=== PATIENT | female | born 1955 | race African-American/Black ===

== ENCOUNTER 2020-07-02 10:33 | Emergency (ER) | payer MEDICARE, MEDICAID, SELFPAY ==
[2020-07-02] VITALS (12 sets, daily range): BP systolic 121–162; BP diastolic 68–90; PULSE 54–81; RESP 18–35; TEMP 37.1; O2SAT 100
--- NOTE | 2020-07-02 10:35 | ECG_ITS ---
Measurements Intervals [place] Rate: 73 P: 51 MO: 143 QRS: -46 QRSD: 154 T: 69 QT: 424 QTc: 469 Interpretive Statements SINUS RHYTHM LEFT BUNDLE BRANCH BLOCK BASELINE ARTIFACT- I, II, III, AVR, AVL, AVF ABNORMAL ECG Electronically Signed On 07-04-2020 7:43:29 CDT by Anibal Parra D.O.
--- NOTE | 2020-07-02 11:15 | PC.NURSE ---
Pt states she took her vital signs this morning and her HR was 100. Pt states the HR worried her with hx of AFIB. Pt states she takes her meds as prescribed. Pt states she had no symptoms or pain. Pt states she currently feels at her baseline. Pt EKG done and HR WNL. Pt on monitor. Pt has call light in reach. Pt appears in NAD. Pt aware of POC.
--- NOTE | 2020-07-02 11:36 | ED.ARRPALP ---
HPI - Arrhythmia/Palpitations General Chief Complaint: Arrhythmia/Palpitations Stated Complaint: HEART RATE 100 Time Seen by Provider: 07/02/20 11:05 History of Present Illness HPI narrative: Patient is a 64-year-old female with history of atrial fibrillation who presents the ER with concerns for an elevated heart rate. Patient reports that she took her vital signs this morning and her heart rate was 100 bpm. This is atypical for her and it scared her and she thought she come in to be evaluated. She had no chest pain or shortness of breath. She has had no exertional dyspnea or chest pain. She had no dizziness or loss of consciousness. She reports she was totally asymptomatic. Related Data Allergies Allergy/AdvReac Type Severity Reaction Status Date / Time apixaban AdvReac Severe Palpitation Verified 07/02/20 10:38 s Review of Systems Review of Systems: All systems reviewed & are unremarkable except as noted in HPI and below Constitutional: Constitutional: Denies fatigue and Denies weakness Cardiovascular: Cardiovascular: Denies chest pain, Reports rapid heart rate and Denies radiating jaw, neck or arm pain Respiratory: Respiratory: Denies cough, Denies dyspnea and Denies wheezing Gastrointestinal: Gastrointestinal: Denies abdominal pain, Denies nausea and Denies vomiting PMFSH Past Medical History Medical History (Updated 07/02/20 @ 11:49 by Drake Segura MD) Atrial fibrillation Hypertension Surgical History Surgical History (Updated 07/02/20 @ 11:47 by Drake Segura MD) History of total right knee replacement Social History Social History (Updated 07/02/20 @ 11:47 by Drake Segura MD) Smoking status: Never smoker Exam Narrative: Exam Narrative: GENERAL: Well-appearing, well-nourished, and in no acute distress. HEAD: Normocephalic, atraumatic. ENT: Mucous membranes moist. CHEST: Clear to auscultation. No respiratory distress. HEART: Regular rate and rhythm. Normal peripheral pulses. ABDOMEN: Soft, nontender, nondistended. EXTREMITIES: Normal range of motion. No edema. NEURO: Alert and oriented x3. PSYCH: Normal mood and affect. Course Course Emergency Course: Patient resting comfortably. In sinus rhythm. Patient declines additional blood work. Patient could have potentially been in A. fib but is certainly rate controlled with her home medications. She has no chest pain will be discharged. Vital Signs Vital signs: Vital Signs Temperature 98.7 F 07/02/20 10:35 Pulse Rate 81 07/02/20 10:35 Respiratory Rate 18 07/02/20 10:35 Blood Pressure 162/86 H 07/02/20 10:35 Pulse Oximetry 100 07/02/20 10:35 Temperature 98.7 F 07/02/20 10:35 Pulse Rate 57 L 07/02/20 11:32 Respiratory Rate 22 H 07/02/20 11:32 Blood Pressure 149/82 H 07/02/20 11:32 Pulse Oximetry 100 07/02/20 10:35 MDM - Arrhythmia/Palpitations ECG Data EKG #1: ECG completion date: 07/02/20 ECG completion time: 10:42 EKG Interpretation: normal rate (73), sinus rhythm, no ectopy, non-specific ST changes, widened QRS and other (Intraventricular conduction delay.) Discharge Plan Discharge Clinical Impression: Palpitations Patient Disposition: Home, Self-Care Condition: Stable Instructions: A-fib (Atrial Fibrillation) (ED), Heart Palpitations (ED) Additional Instructions: Return the ER if you have chest pain or shortness of breath, you cannot keep down food or water, you have fever over 100.4 ?F, you have additional concerns. Follow-up/Referrals: Mckay,SHARON Falcon [Primary Care Provider] - 1 Week
== END 2020-07-02 12:10 | disposition home or self-care (01) ==
PROVIDERS: Emergency Provider Emergency Medicine; PCP Physician Assistant
DX: R00.2 Palpitations (principal); I48.91 Unspecified atrial fibrillation; I10 Essential (primary) hypertension
CPT/HCPCS: 93005; 99283

== ENCOUNTER 2020-08-19 18:11 | Emergency (ER) | payer MEDICARE, SELFPAY ==
[2020-08-19 18:40] VITALS: BP 152/102; PULSE 82; RESP 18; TEMP 36.7; O2SAT 100
--- NOTE | 2020-08-19 18:43 | ECG_ITS ---
Measurements Intervals [place] Rate: 78 P: 42 PA: 139 QRS: -45 QRSD: 149 T: 99 QT: 386 QTc: 442 Interpretive Statements SINUS RHYTHM LEFT AXIS DEVIATION LEFT BUNDLE BRANCH BLOCK ABNORMAL ECG Electronically Signed On 08-19-2020 20:08:51 PHOTONIC LABORATORY TECHNICIAN by Anibal Parra D.O.
[2020-08-19 19:30] VITALS: BP 143/100; PULSE 77; RESP 18; O2SAT 98
--- NOTE | 2020-08-19 19:49 | ED.GENADULT ---
HPI - General Adult General Chief complaint: Recheck/Abnormal Lab/Rx Stated complaint: High Blood Pressure Time Seen by Provider: 08/19/20 19:23 Source: patient Mode of arrival: ambulatory Limitations: no limitations History of Present Illness HPI narrative: Patient is a 64-year-old female who presents for recheck of her blood pressure was at home doing some light activities and felt slightly nauseous checked her blood pressure with a systolic of 200 patient presented for concern on arrival patient notes she is feeling better has no complaints or symptoms has not had any recent illness and is otherwise resting comfortably in the room in no distress history of hypertension is and is been compliant with her medications Related Data Allergies Allergy/AdvReac Type Severity Reaction Status Date / Time apixaban AdvReac Severe Palpitation Verified 07/02/20 10:38 s Review of Systems Review of Systems: All systems reviewed & are unremarkable except as noted in HPI and below PMFSH Past Medical History Medical History Atrial fibrillation Hypertension Surgical History Surgical History History of total right knee replacement Social History Social History Smoking status: Never smoker Exam Narrative: Exam Narrative: GENERAL: Well-appearing, well-nourished, and in no acute distress. HEAD: Normocephalic, atraumatic. EYES: PERRLA and EOMI. ENT: Nares clear, no rhinorrhea or epistaxis. Mucous membranes moist. CHEST: Clear to auscultation. No respiratory distress. No wheezes rales or rhonchi HEART: Regular rate and rhythm. No murmur heard. Normal peripheral pulses. ABDOMEN: Soft, nontender, nondistended EXTREMITIES: Normal range of motion. No edema. SKIN: Warm, dry, no rash. NEURO: No focal deficits. Alert and oriented x3. PSYCH: Normal mood and affect. Course Course Emergency Course: Patient in the room in no distress aware of case findings treatment plan diagnosis blood pressure is felt to be in a safe range for discharge home for further evaluation on outpatient basis by primary care patient is asymptomatic with no complaints Vital Signs Vital signs: Vital Signs Temperature 98.1 F 08/19/20 18:40 Pulse Rate 82 08/19/20 18:40 Respiratory Rate 18 08/19/20 18:40 Blood Pressure 152/102 H 08/19/20 18:40 Pulse Oximetry 100 08/19/20 18:40 Temperature 98.1 F 08/19/20 18:40 Pulse Rate 77 08/19/20 19:30 Respiratory Rate 18 08/19/20 19:30 Blood Pressure 143/100 H 08/19/20 19:30 Pulse Oximetry 98 08/19/20 19:30 Medical Decision Making MDM Narrative Medical decision making narrative: Patient in the room in no distress aware of case findings treatment plan diagnosis. [place] appropriate for outpatient reevaluation by primary care Vital Signs Vital Signs: Vital Signs Temperature 98.1 F 08/19/20 18:40 Pulse Rate 82 08/19/20 18:40 Respiratory Rate 18 08/19/20 18:40 Blood Pressure 152/102 H 08/19/20 18:40 Pulse Oximetry 100 08/19/20 18:40 Temperature 98.1 F 08/19/20 18:40 Pulse Rate 77 08/19/20 19:30 Respiratory Rate 18 08/19/20 19:30 Blood Pressure 143/100 H 08/19/20 19:30 Pulse Oximetry 98 08/19/20 19:30 ECG Data EKG #1: ECG completion date: 08/19/20 ECG completion time: 18:50 EKG Interpretation: normal rate, non-specific ST changes, LBBB, left axis and no acute changes Discharge Plan Discharge Clinical Impression: Elevated blood pressure reading Patient Disposition: Home, Self-Care Condition: Stable Instructions: Antibiotic Form, Hypertension (ED) Additional Instructions: Follow up with your primary care doctor in 5-7 days for re-evaluation. Go to ER for worsening pain, vision changes, nausea/vomiting, fever/chills, weakness, chest pain, shortness of
[2020-08-19 20:47] VITALS: BP 150/84; PULSE 78; RESP 17; O2SAT 98
== END 2020-08-19 20:47 | disposition home or self-care (01) ==
LOC: ANHED 20:08
PROVIDERS: Emergency Provider Emergency Medicine; PCP Physician Assistant
DX: I10 Essential (primary) hypertension (principal); I48.91 Unspecified atrial fibrillation; Z96.651 Presence of right artificial knee joint; I44.7 Left bundle-branch block, unspecified
CPT/HCPCS: 93005; 99283

== ENCOUNTER 2020-09-03 10:38 | Emergency (ER) | payer MEDICARE, SELFPAY ==
--- NOTE | ~2020-09-03 | XR_ITS ---
EXAMINATION: XR chest 2V EXAM DATE: 09/03/2020 11:35 INDICATION: Tightness in Chest X 1 day. TECHNIQUE: Frontal and lateral projections of the chest obtained and reviewed. Comparison is made to prior examination from 06/01/2019. FINDINGS: The lungs are clear. There are no pleural effusions. The cardiomediastinal silhouette is within normal limits. There is no pneumothorax suspected. The bones and soft tissues are unremarkab le. There is aortic arteriosclerosis. IMPRESSION: No acute cardiopulmonary findings. Reviewed, dictated and finalized at location B. [facility]
[2020-09-03 10:45] VITALS: BP 183/88; PULSE 71; RESP 19; TEMP 36.8; O2SAT 100
--- NOTE | 2020-09-03 10:49 | ECG_ITS ---
Measurements Intervals [place] Rate: 68 P: 46 TN: 136 QRS: -40 QRSD: 146 T: 75 QT: 438 QTc: 466 Interpretive Statements SINUS RHYTHM LEFT AXIS DEVIATION LEFT BUNDLE BRANCH BLOCK BASELINE ARTIFACT- I, II, III, AVR, AL, AVF, V1, V3-V6 ABNORMAL ECG Electronically Signed On 09-07-2020 16:14:42 SOFTWARE QUALITY TEST ENGINEER by Anibal Parra D.O.
[2020-09-03 11:16] LABS: Basophils Absolute Auto 0.1 K/mm3 (0.0-0.1); Basophils Percent Auto 0.9 % (0.2-1.2); Eosinophils Absolute Auto 0.2 K/mm3 (0-0.3); Eosinophils Percent Auto 2.8 % (0-4.4); Hematocrit 44.4 % (37.0-47.0); Hemoglobin 14.8 g/dL (12.0-15.0); Immature Granulocyte Absolute 0.02 K/mm3 (0.00-0.031); Immature Granulocyte Percent A 0.3 % (0-0.5); Lymphocytes Absolute Auto 1.81 K/mm3 (0.9-3.2); Lymphocytes Percent Auto 23.4 % (18.3-44.2); Mean Corpuscular HGB Conc 33.3 g/dl (32-36); Mean Corpuscular Hemoglobin 29.2 pg (26-34); Mean Corpuscular Volume 87.7 fl (80-100); Mean Platelet Volume 10.7 fl (7.4-10.4); Monocytes Absolute Auto 0.6 K/mm3 (0.1-0.6); Monocytes Percent Auto 7.6 % (2.6-8.5); Nucleated Red Blood Cells Perc 0.3 % (0.0-0.2); Platelet Count Result 343 k/mm3 (150-375); Red Blood Count 5.06 M/mm3 (4.2-5.4); Red Cell Distribution Width 15.6 % (11.5-14.5); White Blood Count 7.7 K/mm3 (4.5-10.0)
[2020-09-03 11:26] LABS: INR 2.1; Prothrombin Time 23.7 Seconds (11.1-14.7)
[2020-09-03 11:27] LABS: Partial Thromboplastin Time 32.8 SECONDS (22.3-36.8)
[2020-09-03] MEDS: ASPIRIN 81 MG CHEWABLE TABLET 324 MG PO (11:43)
[2020-09-03 11:53] LABS: Anion Gap 10 mmol/L (8-16); Blood Urea Nitrogen 12 mg/dL (7-17); Carbon Dioxide 19 mmol/L (22-30); Chloride 112 mmol/L (98-107); Estimated CRCL calculation 86 ml/min; Estimated Glomerular Filt Rate > 60; Glucose 107 mg/dL (65-105); Potassium 4.8 mmol/L (3.4-5.0); Sodium 141 mmol/L (137-145)
[2020-09-03 11:57] LABS: Troponin I 0.035 ng/mL (0.000-0.034)
[2020-09-03 13:40] VITALS: BP 133/77; PULSE 51; RESP 24; O2SAT 100
[2020-09-03 13:41] LABS: Troponin I < 0.012 ng/mL (0.000-0.034)
--- NOTE | 2020-09-03 13:47 | ED.ARRPALP ---
HPI - Arrhythmia/Palpitations General Chief Complaint: Arrhythmia/Palpitations Stated Complaint: afib, chest congestion Time Seen by Provider: 09/03/20 11:10 Source: patient Mode of arrival: ambulatory Limitations: no limitations History of Present Illness HPI narrative: 65-year-old with a history of atrial fibrillation on warfarin here with complaints of midsternal chest discomfort since early this morning. Patient states that she woke up with the discomfort. She denies any shortness of breath. No history of fever or chills MD complaint: palpitations Duration: intermittent Arrhythmia history: atrial fibrillation Associated symptoms: denies other symptoms Related Data Home Medications Medication Instructions Recorded Confirmed amlodipine 09/03/20 atorvastatin 09/03/20 ergocalciferol (vitamin D2) 09/03/20 [Vitamin D2] ezetimibe mg 09/03/20 ferrous sulfate mg PO 09/03/20 hydralazine 09/03/20 potassium chloride meq PO 09/03/20 sotalol 09/03/20 topiramate 09/03/20 tramadol mg 09/03/20 warfarin 09/03/20 Allergies Allergy/AdvReac Type Severity Reaction Status Date / Time apixaban AdvReac Severe Palpitation Verified 09/03/20 10:50 s Review of Systems Review of Systems: All systems reviewed & are unremarkable except as noted in HPI and below Constitutional: Constitutional: Reports no additional constitutional complaints Eyes: Eyes: Reports no additional eye complaints ENT: Reports system reviewed and no additional complaints, except as documented Cardiovascular: Cardiovascular: Reports as per HPI Respiratory: Respiratory: Reports no additional respiratory complaints Gastrointestinal: Gastrointestinal: Reports no additional gastrointestinal complaints Musculoskeletal: Musculoskeletal: Reports no additional musculoskeletal complaints [facility] Past Medical History Medical History Atrial fibrillation Hypertension Surgical History Surgical History History of total right knee replacement Social History Social History Smoking status: Never smoker Exam Narrative: Exam Narrative: GENERAL: Well-appearing, well-nourished, and in no acute distress. HEAD: Normocephalic, atraumatic. EYES: PERRLA and EOMI.. NECK: Supple. CHEST: Clear to auscultation. No respiratory distress. HEART: . No murmur heard. Normal peripheral pulses. ABDOMEN: Soft, nontender, nondistended, normal active bowel sounds. EXTREMITIES: Normal range of motion. No edema. SKIN: Warm, dry, no rash. NEURO: No focal deficits. Alert and oriented x3. PSYCH: Normal mood and affect. Course Course Emergency Course: Inform patient patient about her lab work, EKG findings. I did discused with Dr. Armstrong, patient can be discharged home and he will follow-up in the office in the next few days. Patient does feel comfortable going home. Vital Signs Vital signs: Vital Signs Temperature 36.8 C 09/03/20 10:45 Pulse Rate 71 09/03/20 10:45 Respiratory Rate 19 09/03/20 10:45 Blood Pressure 183/88 H 09/03/20 10:45 Pulse Oximetry 100 09/03/20 10:45 Temperature 36.8 C 09/03/20 10:45 Pulse Rate 51 L 09/03/20 13:40 Respiratory Rate 24 H 09/03/20 13:40 Blood Pressure 133/77 09/03/20 13:40 Pulse Oximetry 100 09/03/20 13:40 MDM - Arrhythmia/Palpitations Differential Diagnosis Differential diagnosis: Likely palpitations, anxiety and artial fibrillation Lab Data Result diagrams: 09/03/20 11:07 09/03/20 11:07 Labs: Lab Results 09/03/20 09/03/20 09/03/20 Range/Units 11:07 11:07 11:07 WBC 7.7 (4.5-10.0) K/mm3 RBC 5.06 (4.2-5.4) M/mm3 Hgb 14.8 (12.0-15.0) g/dL Hct 44.4 (37.0-47.0) % MCV 87.7 (80-100) fl MCH 29.2 (26-34) pg MCHC 33.3 (32-36) g/dl RDW 15.6 H (11.5-14
== END 2020-09-03 14:19 | disposition home or self-care (01) ==
PROVIDERS: Emergency Provider Family Medicine; PCP Physician Assistant
DX: I48.91 Unspecified atrial fibrillation (principal); I10 Essential (primary) hypertension
CPT/HCPCS: 36415; 71046; 80048; 84484; 85025; 85610; 85730; 93005; 99284; A9270

== ENCOUNTER 2021-03-22 14:15 | Observation (INO) | payer MEDICARE, SELFPAY ==
[2021-03-22] VITALS (22 sets, daily range): BP systolic 142–179; BP diastolic 64–91; PULSE 49–99; RESP 13–27; TEMP 36.1–36.9; O2SAT 78–100; BMI 38.4; BMI 37.9
--- NOTE | ~2021-03-22 | XR_ITS ---
EXAMINATION: XR chest 2V DATE: 03/22/2021 15:46 INDICATION: Congestion and chest pressure. TECHNIQUE: PA and lateral views of the chest were obtained. COMPARISON: Chest radiograph dated 09/03/2020 FINDINGS: . Retrocardiac opacity at the medial left lung base corresponding to a moderate-sized hiatal hernia i s appreciated on CT dated 06/23/2016. The lungs remain clear with no focal airspace opacities, pulmona ry edema, pleural effusion or pneumothorax. Cardiomegaly. Visualized bones and soft tissues are unrem arkable. IMPRESSION: 1. Cardiomegaly. 2. Moderate-sized hiatal hernia. Reviewed, dictated and finalized at location A.
--- NOTE | 2021-03-22 15:30 | ED.URI ---
HPI - URI/Sore Throat General Chief Complaint: Upper Respiratory Infection Stated Complaint: congestion Time Seen by Provider: 03/22/21 15:28 History of Present Illness HPI Narrative: 65 yo female w/ h/h/o htn, a-fib presents form home for chest pressure/congestion since this morning. She reports that this is mild. No SOB. does not change with exertion. Associated with just not feeling like herself. No cough, fever, nausea, vomiting, diarrhea, weakness, dizziness. Related Data Home Medications Medication Instructions Recorded Confirmed amlodipine 10 mg PO DAILY 09/03/20 03/22/21 atorvastatin 40 mg PO DAILY 09/03/20 03/22/21 ergocalciferol (vitamin D2) 1,250 mcg PO WEEKLY 09/03/20 03/22/21 [Vitamin D2] ezetimibe 10 mg PO DAILY 09/03/20 03/22/21 ferrous sulfate 325 mg PO DAILY 09/03/20 03/22/21 hydralazine 25 mg PO BID 09/03/20 03/22/21 potassium chloride 10 meq PO DAILY 09/03/20 03/22/21 sotalol 80 mg PO BID 09/03/20 03/22/21 topiramate 75 mg PO HS PRN 09/03/20 03/22/21 tramadol 50 mg PO Q6H PRN 09/03/20 03/22/21 warfarin 6 mg PO DAILY 09/03/20 03/22/21 docusate sodium [DOK] 100 mg PO BID 03/22/21 03/22/21 losartan 25 mg PO DAILY 03/22/21 03/22/21 Allergies Allergy/AdvReac Type Severity Reaction Status Date / Time apixaban AdvReac Severe Palpitation Verified 09/03/20 10:50 s Review of Systems Review of Systems: All systems reviewed & are unremarkable except as noted in HPI and below Constitutional: Constitutional: Denies fever(s) and Denies weakness Eyes: Eyes: Reports no additional eye complaints ENT: Denies sore throat Cardiovascular: Cardiovascular: Reports as per HPI Respiratory: Respiratory: Reports as per HPI Gastrointestinal: Gastrointestinal: Denies abdominal pain, Denies nausea and Denies vomiting Genitourinary: Genitourinary: Denies hematuria, Denies nocturia and Denies dysuria Musculoskeletal: Musculoskeletal: Denies back pain Neurologic: Denies confusion, Denies dizziness, Denies headache(s) and Denies weakness PMFSH Past Medical History Medical History Chronic anticoagulation On warfarin for stroke prophylaxis due to AFib. Dyslipidemia History of cardioversion Hypertension Left bundle branch block Chronic finding. Paroxysmal atrial fibrillation Status post cardioversion x2. Surgical History Surgical History History of total right knee replacement History of tubal ligation Family History Family History Sibling Lung cancer Chronic obstructive pulmonary disease Other Diabetes mellitus Heart disease Social History Social History Social History: The patient lives in her own home in [place]. Retired from housekeeping. Lifelong nonsmoker. No alcohol or illicit substance use. She designates her son Ishmael Gale as her surrogate decision maker. Code status: Full code. Exam Const: General: no acute distress and alert Orientation/consciousness: patient oriented x3 HENMT: Head: normal to inspection Neck: Neck: normal visual inspection and no lymphadenopathy Chest: Chest palpation & inspection: no tenderness Resp: Effort & Inspection: normal respiratory effort Auscultation: clear to auscultation bilaterally, no rales, no rhonchi and no wheezes Cardio: Jugular venous distension: no JVD Rate: regular rate Rhythm: regular rhythm Heart sounds: no murmurs GI: Inspection: non-distended GI Palp: Yes Soft to palpation and No Tenderness to palpation present (GI) Skin: General skin exam: normal color Neuro: General: patient oriented x3 and moves all extremities Speech: normal speech Psych: Appearance: well kempt Affect: normal affect Course Vital Signs Vital signs: Vital Signs Temperature 36.9 C 03/22/21 14:17 P
[2021-03-22 16:11] LABS: Basophils Absolute Auto 0.1 K/mm3 (0.0-0.1); Basophils Percent Auto 0.9 % (0.2-1.2); Eosinophils Absolute Auto 0.1 K/mm3 (0-0.3); Eosinophils Percent Auto 1.9 % (0-4.4); Hematocrit 46.4 % (37.0-47.0); Hemoglobin 15.2 g/dL (12.0-15.0); Immature Granulocyte Absolute 0.02 K/mm3 (0.00-0.031); Immature Granulocyte Percent A 0.3 % (0-0.5); Lymphocytes Absolute Auto 1.79 K/mm3 (0.9-3.2); Lymphocytes Percent Auto 27.7 % (18.3-44.2); Mean Corpuscular HGB Conc 32.8 g/dl (32-36); Mean Corpuscular Hemoglobin 29.5 pg (26-34); Mean Corpuscular Volume 90.1 fl (80-100); Mean Platelet Volume 9.9 fl (7.4-10.4); Monocytes Absolute Auto 0.5 K/mm3 (0.1-0.6); Monocytes Percent Auto 8.2 % (2.6-8.5); Platelet Count Result 314 k/mm3 (150-375); Red Blood Count 5.15 M/mm3 (4.2-5.4); Red Cell Distribution Width 14.8 % (11.5-14.5); White Blood Count 6.5 K/mm3 (4.5-10.0)
--- NOTE | 2021-03-22 16:17 | ECG_ITS ---
Measurements Intervals [place] Rate: 61 P: 44 [place]: 149 QRS: -42 QRSD: 157 T: 71 QT: 442 QTc: 447 Interpretive Statements SINUS RHYTHM WITH SINUS ARRHYTHMIA LEFT AXIS DEVIATION LEFT BUNDLE BRANCH BLOCK BASELINE ARTIFACT- I, II, III, AVR, AVL, AVF ABNORMAL ECG Electronically Signed On 03-22-2021 20:02:22 CDT by Anibal Parra D.O.
[2021-03-22 16:20] LABS: INR 1.4; Prothrombin Time 17.4 Seconds (11.1-14.7)
[2021-03-22 16:21] LABS: Anion Gap 10 mmol/L (8-16); Blood Urea Nitrogen 7 mg/dL (7-17); Calcium 9.3 mg/dL (8.4-10.2); Carbon Dioxide 19 mmol/L (22-30); Chloride 114 mmol/L (98-107); Estimated CRCL calculation 77 ml/min; Estimated Glomerular Filt Rate > 60; Glucose 104 mg/dL (65-105); Partial Thromboplastin Time 26.8 SECONDS (22.3-36.8); Potassium 3.6 mmol/L (3.4-5.0); Sodium 143 mmol/L (137-145)
[2021-03-22 16:30] LABS: NT Pro B Type Natriuretic Pept 47 pg/mL (5-100)
[2021-03-22 16:33] LABS: Troponin I 0.016 ng/mL (0.000-0.034)
[2021-03-22 18:56] LABS: Troponin I 0.028 ng/mL (0.000-0.034)
[2021-03-22] MEDS: NITROGLYCERIN OINTMENT 1 INCH DOSE TRANSDERM (19:15)
[2021-03-22] MEDS: ASPIRIN 81 MG CHEWABLE TABLET 324 MG PO (19:24)
--- NOTE | 2021-03-22 22:00 | PM.IMHP ---
H&P: HPI History of Present Illness Date/Time: 03/22/21 22:00 Chief Complaint: Chest pain. Narrative: This is a 65-year-old female with history of paroxysmal atrial fibrillation on long-term anticoagulation, chronic left bundle branch block, hypertension, and hyperlipidemia who presented to the emergency department earlier today via private vehicle from home for evaluation of chest pain. This morning she awoke with ?congestion? in her chest and just did not feel right.? She thought perhaps food would make it better however it did not. She then started to feel some pressure in the mid chest region associated with mild dizziness. Her symptoms persisted for most of the afternoon and thus she came in for evaluation. Her symptoms have resolved since receiving aspirin and nitro paste in the ER. As mentioned above she has a chronic left bundle branch block and is followed by Dr. Armstrong in [place]. She last saw him earlier this year and everything seemed to be doing well at that time. Her last stress test was a couple of years ago and was unremarkable. Currently she has no complaints. She denies sweats, nausea, vomiting, shortness of breath, pleuritic pain, palpitations, epigastric discomfort, abdominal pain, bloating, and GERD symptoms. No sinus congestion, rhinorrhea, otalgia, odynophagia, or cough. Review of Systems Review of Systems: Narrative: Twelve systems were reviewed with pertinent positives and negatives as per HPI. Except as documented, all other systems were reviewed and are negative. [facility] Past Medical History Medical History (Updated 03/22/21 @ 23:32 by Brittani Hancock PA-C) Chronic anticoagulation On warfarin for stroke prophylaxis due to AFib. Dyslipidemia History of cardioversion Hypertension Left bundle branch block Chronic finding. Paroxysmal atrial fibrillation Status post cardioversion x2. Surgical History Surgical History (Updated 03/22/21 @ 23:30 by Brittani Hancock PA-C) History of total right knee replacement History of tubal ligation Family History Family History (Updated 03/22/21 @ 23:30 by Brittani Hancock PA-C) Sibling Lung cancer Chronic obstructive pulmonary disease Other Diabetes mellitus Heart disease Social History Social History (Updated 03/22/21 @ 23:30 by Brittani Hancock PA-C) Social History: The patient lives in her own home in [place]. Retired from housekeeping. Lifelong nonsmoker. No alcohol or illicit substance use. She designates her son Ishmael Gale as her surrogate decision maker. Code status: Full code. Meds Home Medications and Allergies Home Medications Medication Instructions Recorded Confirmed Type amlodipine 10 mg PO DAILY 09/03/20 03/22/21 History atorvastatin 40 mg PO DAILY 09/03/20 03/22/21 History ergocalciferol (vitamin D2) 1,250 mcg PO WEEKLY 09/03/20 03/22/21 History [Vitamin D2] ezetimibe 10 mg PO DAILY 09/03/20 03/22/21 History ferrous sulfate 325 mg PO DAILY 09/03/20 03/22/21 History hydralazine 25 mg PO BID 09/03/20 03/22/21 History potassium chloride 10 meq PO DAILY 09/03/20 03/22/21 History sotalol 80 mg PO BID 09/03/20 03/22/21 History topiramate 75 mg PO HS PRN 09/03/20 03/22/21 History tramadol 50 mg PO Q6H PRN 09/03/20 03/22/21 History warfarin 6 mg PO DAILY 09/03/20 03/22/21 History docusate sodium [DOK] 100 mg PO BID 03/22/21 03/22/21 History losartan 25 mg PO DAILY 03/22/21 03/22/21 History Allergies Allergy/AdvReac Type Severity Reaction Status Date / Time apixaban AdvReac Severe Palpitation Verified 09/03/20 10:50 s Vital Signs Vital Signs - 24 hr 03/22/21 14:17 03/22/21 15:32 03/22/21 16:00 Temperature 98.5 F 98.0 F Pulse Rate 71 66 54 L Respiratory Rate 18 18 27 H Blood Pressure 179/86 H 145/68 H Pulse Oximetry 97 99 03/22/21 16:23 03/22/21 16:35 03/22/21 16:45 Temperature Pulse Rate 54 L 50 L 58 L Respiratory Rate 25 H 21 H 23 H Blood Pressure Pu
--- NOTE | 2021-03-22 22:49 | PC.NURSE ---
This patient, Linda Hoang, was admitted to IMU Room 209-01. Patient/family oriented to hospital policies and general routines including ID bracelet, bed and alarms, visiting hours, pain management, procedures, bathroom and other care routines, personal items, smoking policy, room service/diet, and visiting hours. Information on how to activate the Rapid Response Team has been discussed. Patient/Family are encouraged to report perceived risks to care and to ask questions if they do not understand what they are told or what they should do.
[2021-03-23] VITALS (13 sets, daily range): BP systolic 123–137; BP diastolic 66–71; PULSE 40–77; RESP 16–18; TEMP 36.1–36.8; O2SAT 98–100
[2021-03-23] MEDS: SOTALOL HCL 80 MG TABLET PO ×2 (00:34→08:54)
[2021-03-23] MEDS: WARFARIN (*PBKC) 2 MG TABLET PO (00:35)
[2021-03-23] MEDS: WARFARIN (*PBKC) 3 MG TABLET 6 MG PO (00:35)
[2021-03-23] MEDS: hydrALAZINE HCL 25 MG TABLET PO ×2 (00:36→08:53)
[2021-03-23 00:54] LABS: Troponin I 0.015 ng/mL (0.000-0.034)
[2021-03-23 05:21] LABS: Alanine Aminotransferase 30 U/L (4-35); Albumin Level 3.5 g/dL (3.5-5.1); Alkaline Phosphatase 103 U/L (38-126); Anion Gap 9 mmol/L (8-16); Aspartate Amino Transferase 26 U/L (14-36); Bilirubin,Total 0.3 mg/dL (0.2-1.3); Blood Urea Nitrogen 9 mg/dL (7-17); Calcium 9.1 mg/dL (8.4-10.2); Carbon Dioxide 17 mmol/L (22-30); Chloride 115 mmol/L (98-107); Estimated CRCL calculation 73 ml/min; Estimated Glomerular Filt Rate > 60; Glucose 98 mg/dL (65-105); Potassium 3.5 mmol/L (3.4-5.0); Sodium 141 mmol/L (137-145)
[2021-03-23] MEDS: ASPIRIN 81 MG CHEWABLE TABLET PO (08:47)
[2021-03-23] MEDS: DOCUSATE SODIUM 100 MG CAPSULE PO (08:47)
[2021-03-23] MEDS: amLODIPine BESYLATE 5 MG TABLET 10 MG PO (08:48)
[2021-03-23] MEDS: FERROUS SULFATE 324 MG TABLET PO (08:48)
[2021-03-23] MEDS: POTASSIUM CHLORIDE 10 MEQ TABLET.ER PO (08:48)
[2021-03-23] MEDS: ATORVASTATIN 40 MG TABLET PO (08:49)
[2021-03-23] MEDS: EZETIMIBE 10 MG TABLET PO (08:49)
[2021-03-23] MEDS: LOSARTAN POTASSIUM 25 MG TABLET PO (08:54)
--- NOTE | 2021-03-23 11:12 | PM.CNCAR ---
Assessment and Plan Assessment and plan (1) Chest pressure: Code(s): R07.89 - Other chest pain Status: Acute Assessment and Plan: Somewhat concerning for angina. Her pain did persist for several hours and she did not have a significant bump of troponin but none the less she there was a rise and fall in her troponin level although not elevating enough to be technically positive. Her symptoms did also improved with aspirin and nitroglycerin. Certainly further ischemic workup is warranted. I talked about the risks, benefits alternatives of stress testing versus cardiac catheterization. She wishes to start with a stress test. This is reasonable given her chronic anticoagulation anyway. Will keep her NPO after midnight for a Lexiscan myocardial perfusion study. Her blood pressure was significantly elevated also at the time of her presentation. Her hypertension may also be an etiology to her symptoms. Continue nitroglycerin, aspirin, sotalol, losartan, statin. (2) Hypertension: Code(s): I10 - Essential (primary) hypertension Status: Chronic Assessment and Plan: Generally above goal but most recent blood pressure assessment after medications provided reveal a controlled blood pressure. If further changes are needed, would increase her losartan to 50 mg daily. (3) Chronic anticoagulation: Code(s): Z79.01 - terminal carman (current) use of anticoagulants Status: Acute Assessment and Plan: Check an INR today and daily (4) Paroxysmal atrial fibrillation: Code(s): I48.0 - Paroxysmal atrial fibrillation Status: Acute Assessment and Plan: Continue sotalol and anticoagulation (5) Hypokalemia: Code(s): E87.6 - Hypokalemia Status: Acute Assessment and Plan: KCL 40 mEq p.o. x1 (6) Left bundle branch block: Code(s): I44.7 - Left bundle-branch block, unspecified Status: Acute Assessment and Plan: Will check a 2D echocardiogram with Doppler History of Present Illness History of Present Illness Consult date/time: 03/23/21 11:12 Requesting physician: Nathan Montero MD Consult reason: chest pain Reason For Visit: Chest Pain Narrative: Date of service 03/23/2021: History patient is a 65-year-old female who had seen Dr. Harvey remotely. Due to insurance reasons she is now seen Dr. Armstrong she has a history of paroxysmal atrial fibrillation chronic left bundle-branch block. She is on warfarin for chronic anticoagulation. She has had an allergic reaction to Eliquis the past. She came yesterday because of chest pain. She woke up with ?congestion'. States the congestive was in her chest. Upon further questioning she describes a congestion as a pain in her left upper chest which radiated towards the left shoulder. It was worsened with activity and better with rest. She had no associated shortness breath, nausea or diaphoresis. Symptoms persisted she decided to come to the hospital for further evaluation. She was noted to have some persistent discomfort in the emergency department. She was given some aspirin as well as nitroglycerin her symptoms resolved. She denies any significant shortness of breath, syncope, presyncope, paroxysmal nocturnal dyspnea, orthopnea, edema palpitations. Her troponins remain negative but they did rise and fall. Review of Systems Review of Systems: All systems reviewed & are unremarkable except as noted in HPI and below Constitutional: Constitutional: Denies weakness Eyes: Eyes: Denies blurry vision ENT: Reports Normal hearing present Cardiovascular: Cardiovascular: Reports chest pain Respiratory: Respiratory: Denies dyspnea Gastrointestinal: Gastrointestinal: Denies abdominal pain Genitourinary: Genitourinary: Denies hematuria and Denies flank pain Musculoskeletal: Musculoskeletal: Denies back pain and Denies neck pain Integumentary/Breasts: Skin/Breast: Denies dry skin and Denies unus
--- NOTE | 2021-03-23 11:52 | PM.IMPN ---
Progress Note: A&P Assessment and Plan (1) Chest pressure: Code(s): R07.89 - Other chest pain Status: Acute Assessment and Plan: Atypical symptoms but moderate risk for CAD LBBB, sinus bronwyn chronic TnI negative x 3 Stop ASA as she is chronically anticoagulated Plan echo & Lexiscan stress for 03/24 (2) Paroxysmal atrial fibrillation: Code(s): I48.0 - Paroxysmal atrial fibrillation Status: Acute Assessment and Plan: Continue home regimen sotalol and warfarin 6mg daily 03/22 received additional 2mg warfarin x 1. F/u INR (3) Hypertension: Qualifiers: Hypertension type: unspecified Qualified Code(s): I10 - Essential (primary) hypertension Code(s): I10 - Essential (primary) hypertension Status: Chronic Assessment and Plan: Controlled Home meds (4) Hiatal hernia: Code(s): K44.9 - Diaphragmatic hernia without obstruction or gangrene Status: Acute Assessment and Plan: PPI (5) Dyslipidemia: Code(s): E78.5 - Hyperlipidemia, unspecified Status: Acute Assessment and Plan: Continue home regimen (6) Chronic anticoagulation: Code(s): Z79.01 - FPC (current) use of anticoagulants Status: Acute Subjective Date/time seen: 03/23/21 11:52 Interval history: 65 y f withhx hbp, afib awakened 6/12 AM with bilateral pressure in her lower chest. Similar sx's with paroxysmal afib in past. Denied associated sx's. 03/23: No recurrent sx's. Review of Systems Review of Systems: All systems reviewed & are unremarkable except as noted in HPI and below Exam Narrative: Exam Narrative: HEENT: PERRL, sclerae nonicteric, pharyngeal mucosa pink and intact NECK: No JVD CHEST: Clear to auscultation. Normal effort. HEART: NL S1/S2, regular, no murmur ABDOMEN: BS+, soft, nontender, no mass, no bruits EXTREMITIES: No cyanosis, edema, or clubbing NEUROLOGIC: CN intact and symmetric to inspection. MUSCULOSKELETAL: Tone and strength symmetric. PSYCH: Alert. Oriented to person, place, and time. Objective Data Vital Signs Vital Signs: Vital Signs - 24 hr 03/22/21 14:17 03/22/21 15:32 03/22/21 16:00 Temperature 98.5 F 98.0 F Pulse Rate 71 66 54 L Respiratory Rate 18 18 27 H Blood Pressure 179/86 H 145/68 H Pulse Oximetry 97 99 03/22/21 16:23 03/22/21 16:35 03/22/21 16:45 Temperature Pulse Rate 54 L 50 L 58 L Respiratory Rate 25 H 21 H 23 H Blood Pressure Pulse Oximetry 100 98 100 03/22/21 16:47 03/22/21 17:00 03/22/21 17:02 Temperature Pulse Rate 53 L 60 65 Respiratory Rate 24 H 20 27 H Blood Pressure 145/64 H 151/69 H Pulse Oximetry 99 99 99 03/22/21 17:05 03/22/21 17:19 03/22/21 17:31 Temperature Pulse Rate 52 L 51 L 56 L Respiratory Rate 26 H 13 22 H Blood Pressure Pulse Oximetry 99 03/22/21 17:32 03/22/21 17:45 03/22/21 17:47 Temperature Pulse Rate 56 L 62 58 L Respiratory Rate 16 25 H 26 H Blood Pressure 165/81 H 163/75 H Pulse Oximetry 100 100 03/22/21 18:01 03/22/21 18:25 03/22/21 19:15 Temperature Pulse Rate 58 L 74 63 Respiratory Rate 22 H 26 H 18 Blood Pressure 165/82 H Pulse Oximetry 100 100 03/22/21 21:27 03/22/21 22:00 03/22/21 22:10 Temperature 96.9 F L Pulse Rate 49 L 56 L 78 Respiratory Rate 16 Blood Pressure 142/91 H Pulse Oximetry 99 03/22/21 22:42 03/23/21 00:00 03/23/21 00:15 Temperature 96.9 F L 97.4 F L Pulse Rate 99 55 L 58 L Respiratory Rate 16 16 Blood Pressure 142/91 H 123/67 Pulse Oximetry 78 L 100 100 03/23/21 00:34 03/23/21 02:00 03/23/21 04:00 Temperature 97 F L Pulse Rate 58 L 40 L 42 L Respiratory Rate 16 Blood Pressure 128/66 Pulse Oximetry 100 03/23/21 06:00 03/23/21 07:42 03/23/21 08:00 Temperature 97.6 F Pulse Rate 43 L 52 L 47 L Respiratory Rate 18 18 Blood Pressure 127/71 Pulse Oximetry 100 100 03/23/21 08:54 03/23/21 10:00 03/23/21 11:24
[2021-03-23] MEDS: POTASSIUM CHLORIDE 20 MEQ TABLET 40 MEQ PO (12:12)
[2021-03-23 13:57] LABS: INR 1.5; Prothrombin Time 19.1 Seconds (11.1-14.7)
--- NOTE | 2021-03-23 14:13 | PM.DS ---
DS: Admitting Diagnosis Admitting Diagnosis Admitting Diagnosis: Chest pain DS: Discharge Diagnosis Discharge Diagnosis (1) Chest pressure: Code(s): R07.89 - Other chest pain Status: Acute Assessment and Plan: Atypical symptoms but moderate risk for CAD LBBB, sinus bronwyn chronic TnI negative x 3 Stop ASA as she is chronically anticoagulated Patient wished to go home AMA and f/u with PCP as outpatient (2) Paroxysmal atrial fibrillation: Code(s): I48.0 - Paroxysmal atrial fibrillation Status: Acute Assessment and Plan: Continue home regimen sotalol and warfarin 6mg daily 03/22 received additional 2mg warfarin x 1. 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 Similar to what she previously experience with episodes of atrial fibrillation. Not worsened by exertion or position or breathing. Came to the emergency room for evaluation. Troponins were negative x3. EKG showed stable sinus bradycardia left bundle branch block. Chest x-ray was unremarkable. Vital signs including oxygenation were stable. After admission she had no further episodes of chest discomfort and was in sinus rhythm on telemetry. Patient was seen by Cardiology. They recommended stay in the hospital for Lexiscan thallium stress and echocardiogram on March 24. Patient declined to stay and instead wished to proceed with evaluation as an outpatient. She left against medical advice on March 23. Time Spent with Patient Time attestation: Total time spent providing and/or coordinating discharge services: Time spent: Greater than 30 minutes Exam Narrative: Exam Narrative: HEENT: PERRL, sclerae nonicteric, pharyngeal mucosa pink and intact NECK: No JVD CHEST: Clear to auscultation. Normal effort. HEART: NL S1/S2, regular, no murmur ABDOMEN: BS+, soft, nontender, no mass, no bruits EXTREMITIES: No cyanosis, edema, or clubbing NEUROLOGIC: CN intact and symmetric to inspection. MUSCULOSKELETAL: Tone and strength symmetric. PSYCH: Alert. Oriented to person, place, and time. DS: Data Data Completed and Pending Labs on day of discharge: Labs from last 24 hours 03/23/21 03/23/21 03/23/21 13:04 04:33 00:24 WBC RBC Hgb Hct MCV MCH MCHC RDW Plt Count MPV Immature Gran % (Auto) Neut % (Auto) Lymph % (Auto) [place] % (Auto) Eos % (Auto) Baso % (Auto) Lymph # (Auto) [place] # (Auto) Eos # (Auto) Baso # (Auto) Abs Immat Gran (auto) Absolute Neuts (auto) Absolute Nucleated RBC Nucleated RBC % PT 19.1 H INR 1.5 APTT Sodium 141 Potassium 3.5 Chloride 115 H Carbon Dioxide 17 L Anion Gap 9 BUN 9 Creatinine 0.70 Estim Creat Clear Calc 73 Estimated GFR > 60 Glucose 98 Calcium 9.1 Total Bilirubin 0.3 AST 26 ALT 30 Alkaline Phosphatase 103 Troponin I 0.015 D NT-Pro-B Natriuret Pep Total Protein 7.0 Albumin 3.5 03/22/21 03/22/21 03/22/21 18:20 16:06 16:06 WBC RBC Hgb Hct MCV MCH MCHC RDW Plt Count MPV Immature Gran % (Auto) Neut % (Auto) Lymph %
--- NOTE | 2021-03-23 14:26 | PC.NURSE ---
Patient left AMA at 1415. Patient was educated on the possible outcomes of leaving without the recomended testing and when to report to another Emergency Room. IV was removed and patient had no complaints of chest pain or shortness of breath at this time.
== END 2021-03-23 14:15 | disposition left against medical advice (07) ==
LOC: ANHED 15:49 → ANHIMU 03-23 01:26
PROVIDERS: Internal Medicine Cardiovascular Disease; Physician Assistant; Admitting Provider Internal Medicine; Emergency Provider Emergency Medicine; PCP Physician Assistant; Visit Provider Internal Medicine
DX: R07.89 Other chest pain (principal); I44.7 Left bundle-branch block, unspecified; I10 Essential (primary) hypertension; I48.91 Unspecified atrial fibrillation; E78.5 Hyperlipidemia, unspecified; E87.6 Hypokalemia; Z79.01 Long term (current) use of anticoagulants; Z79.899 Other long term (current) drug therapy
CPT/HCPCS: 36415; 71046; 80048; 80053; 83880; 84484; 85025; 85610; 85730; 93005; 99285; A9270; G0378

== ENCOUNTER 2021-09-28 11:55 | Emergency (ER) | payer MEDICARE, MEDICAID, SELFPAY ==
[2021-09-28 12:18] VITALS: BP 167/75; PULSE 63; RESP 18; TEMP 36.5; O2SAT 100
== END 2021-09-29 02:01 | disposition left against medical advice (07) ==
LOC: ANHED 13:18
PROVIDERS: PCP Physician Assistant
DX: R06.02 Shortness of breath (principal)
CPT/HCPCS: 99199

== ENCOUNTER 2021-11-24 17:02 | Emergency (ER) | payer MEDICARE, SELFPAY ==
--- NOTE | ~2021-11-24 | XR_ITS ---
EXAMINATION: XR chest 1V portable DATE: 11/24/2021 17:57 INDICATION: 2 days of dyspnea TECHNIQUE: frontal view of the chest was obtained. COMPARISON: Chest radiograph dated 03/22/2021 FINDINGS: The lungs are clear with no focal airspace opacities, pulmonary edema, pleural effusion or pneumothor ax. Heart size is normal. Moderate-sized hiatal hernia. IMPRESSION: 1. No acute cardiopulmonary disease. 2. Moderate-sized hiatal hernia. Reviewed, dictated and finalized at location A. AIDE TECH
[2021-11-24 17:05] VITALS: BP 185/90; PULSE 63; RESP 18; TEMP 37.1; O2SAT 100
--- NOTE | 2021-11-24 17:14 | ECG_ITS ---
Measurements Intervals [place] Rate: 62 P: 44 [place]: 131 QRS: -44 QRSD: 158 T: 134 QT: 440 QTc: 450 Interpretive Statements SINUS RHYTHM LEFT AXIS DEVIATION LEFT BUNDLE BRANCH BLOCK BASELINE ARTIFACT- I, II, III, AVR, AVL, AVF, V1-V6 ABNORMAL ECG Electronically Signed On 11-24-2021 20:13:12 RADIO MACHINIST by Anibal Parra D.O.
[2021-11-24 17:48] VITALS: PULSE 62
--- NOTE | 2021-11-24 17:48 | PC.NURSE ---
pt refusing ABG at this time, simply choosing not to do it.
[2021-11-24 17:49] VITALS: O2SAT 99
--- NOTE | 2021-11-24 17:49 | ED.GENADULT ---
HPI - General Adult General Chief complaint: Shortness of Breath/Dyspnea Stated complaint: orthopnea Time Seen by Provider: 11/24/21 17:12 Source: patient Limitations: no limitations History of Present Illness HPI narrative: Patient is 66 years old -[place] female retired, lives alone, presented to the ED with concern about the possibility of having a heart attack. 2 days ago patient went grocery store, then went home within few minutes and started having trouble breathing lasted for about 15 minutes at rest. Today patient was watching TV and started thinking about heart attack and what can happen to people if they had a heart attack. Subsequently patient started feeling bad all over. Patient denies any chest pain or shortness of breath since Wednesday which is 2 days ago. Patient reports a lot of stress in her life, she lives alone, and she is feeling lonely, having children whow did not see for months because they are busy. Related Data Home Medications Medication Instructions Recorded Confirmed amlodipine 10 mg PO DAILY 09/03/20 03/22/21 atorvastatin 40 mg PO DAILY 09/03/20 03/22/21 ergocalciferol (vitamin D2) 1,250 mcg PO WEEKLY 09/03/20 03/22/21 [Vitamin D2] ezetimibe 10 mg PO DAILY 09/03/20 03/22/21 ferrous sulfate 325 mg PO DAILY 09/03/20 03/22/21 hydralazine 25 mg PO BID 09/03/20 03/22/21 potassium chloride 10 meq PO DAILY 09/03/20 03/22/21 sotalol 80 mg PO BID 09/03/20 03/22/21 topiramate 75 mg PO HS PRN 09/03/20 03/22/21 tramadol 50 mg PO Q6H PRN 09/03/20 03/22/21 warfarin 6 mg PO DAILY 09/03/20 03/22/21 docusate sodium [DOK] 100 mg PO BID 03/22/21 03/22/21 losartan 25 mg PO DAILY 03/22/21 03/22/21 Allergies Allergy/AdvReac Type Severity Reaction Status Date / Time apixaban AdvReac Severe Palpitation Verified 11/24/21 18:03 s Review of Systems Review of Systems: CONSTITUTIONAL: Denies fever, chills, or sweats. EYES: Denies visual changes, redness, or discharge. ENT: Denies rhinorrhea, congestion, sore throat, or otalgia. CARDIOVASCULAR: Denies chest pain, palpitations, or edema. RESPIRATORY: Denies cough or dyspnea. GASTROINTESTINAL: Denies abdominal pain, nausea, vomiting, or diarrhea. GENITOURINARY: Denies dysuria or hematuria. SKIN: Denies rash or itching. MUSCULOSKELETAL: Denies back pain, joint pain, or myalgia. NEUROLOGIC: Denies headache, numbness, or weakness. PSYCHIATRIC: Denies anxiety or depression. PMFSH Past Medical History Medical History Chronic anticoagulation On warfarin for stroke prophylaxis due to AFib. Dyslipidemia History of cardioversion Hypertension Left bundle branch block Chronic finding. Paroxysmal atrial fibrillation Status post cardioversion x2. Surgical History Surgical History History of total right knee replacement History of tubal ligation Family History Family History Sibling Lung cancer Chronic obstructive pulmonary disease Other Diabetes mellitus Heart disease Social History Social History Social History: The patient lives in her own home in [place]. Retired from housekeeping. Lifelong nonsmoker. No alcohol or illicit substance use. She designates her son Ishmael Gale as her surrogate decision maker. Code status: Full code. Exam Narrative: General appearance: Well-developed, well-nourished Skin: Normal color Head: Normocephalic, nontraumatic Eyes: Clear conjunctiva ENT: Oropharynx normal, ears normal, nose normal Neck: Supple, nontender Chest and respiratory: Airway patent, no respiratory distress, no accessory muscle use Heart: Regular rate/rhythm Abdomen: Soft, nontender, no organomegaly, quiet bowel sounds Vascular: Normal peripheral pulses, normal capillary refill. Musculoskeletal: Normal range of motion,
--- NOTE | 2021-11-24 17:55 | PC.NURSE ---
pt currently refusing labs and SLN at this time.
--- NOTE | 2021-11-24 17:56 | PC.NURSE ---
pt now refusing IV ACCESS AND LAB DRAW.
[2021-11-24 19:41] VITALS: BP 152/62; PULSE 52; RESP 16; O2SAT 100
[2021-11-24 20:01] VITALS: BP 165/78; PULSE 80; RESP 16; TEMP 36.8; O2SAT 100
== END 2021-11-24 20:03 | disposition left against medical advice (07) ==
PROVIDERS: Emergency Provider Emergency Medicine; PCP Physician Assistant
DX: F41.9 Anxiety disorder, unspecified (principal); R06.00 Dyspnea, unspecified; I44.7 Left bundle-branch block, unspecified
CPT/HCPCS: 71045; 93005; 99284

== ENCOUNTER 2022-09-25 16:16 | Emergency (ER) | payer MEDICARE, MEDICAID, SELFPAY ==
[2022-09-25] VITALS (15 sets, daily range): BP systolic 150–187; BP diastolic 78–95; PULSE 58–78; RESP 16–30; TEMP 36.7; O2SAT 100
--- NOTE | ~2022-09-25 | XR_ITS ---
EXAMINATION: XR chest 2V DATE: 09/25/2022 16:55 INDICATION: Chest pain TECHNIQUE: PA and lateral views of the chest are obtained. COMPARISON: 11/24/2021 FINDINGS: There are small pleural effusions. Cardiomegaly is noted. There are minimal airspace opacit ies at the lung bases. No pneumothorax is identified. There is moderate thoracic spondylosis. IMPRESSION: 1. Small pleural effusions with bibasilar airspace opacities, atelectasis versus pneumonia. 2. Cardiomegaly. Reviewed, dictated and finalized at location A. NOLOGY CONSULTANT IMPRESSION: 1. Small pleural effusions with bibasilar airspace opacities, atelectasis versu s pneumonia. 2. Cardiomegaly.
--- NOTE | 2022-09-25 16:17 | ECG_ITS ---
Measurements Intervals [place] Rate: 70 P: 39 [place]: 141 QRS: -30 QRSD: 156 T: 108 QT: 403 QTc: 436 Interpretive Statements SINUS RHYTHM POSSIBLE LEFT ATRIAL ENLARGEMENT [-0.1mV P WAVE IN V1/V2] LEFT BUNDLE BRANCH BLOCK [120+ ms QRS DURATION, 80+ ms Q/S IN V1/V2, 85+ ms R IN I/aVL/V5/V6] COMPARED TO ECG 11/24/2021 17:18:33 NO SIGNIFICANT CHANGES Electronically Signed On 09-25-2022 16:51:02 ELEVATOR BUILDER by Isaias Harvey M.D.
[2022-09-25 16:53] LABS: Basophils Percent Auto 0.5 % (0.2-1.2); Eosinophils Absolute Auto 0.1 K/mm3 (0-0.3); Eosinophils Percent Auto 1.2 % (0-4.4); Hematocrit 49.5 % (37.0-47.0); Hemoglobin 16.2 g/dL (12.0-15.0); Immature Granulocyte Absolute 0.01 K/mm3 (0.00-0.031); Immature Granulocyte Percent A 0.2 % (0-0.5); Lymphocytes Absolute Auto 1.44 K/mm3 (0.9-3.2); Lymphocytes Percent Auto 22.1 % (18.3-44.2); Mean Corpuscular HGB Conc 32.7 g/dl (32-36); Mean Corpuscular Hemoglobin 30.7 pg (26-34); Mean Corpuscular Volume 93.9 fl (80-100); Mean Platelet Volume 9.8 fl (7.4-10.4); Monocytes Absolute Auto 0.8 K/mm3 (0.1-0.6); Monocytes Percent Auto 12.6 % (2.6-8.5); Neutrophils Absolute Auto 4.1 K/mm3 (1.3-6.7); Neutrophils Percent Auto 63.4 % (45.5-73.1); Platelet Count Result 239 k/mm3 (150-375); Red Blood Count 5.27 M/mm3 (4.2-5.4); Red Cell Distribution Width 16.1 % (11.5-14.5); White Blood Count 6.5 K/mm3 (4.5-10.0)
[2022-09-25 17:02] LABS: Alanine Aminotransferase 27 U/L (6-35); Albumin Level 4.3 g/dL (3.5-5.1); Alkaline Phosphatase 128 U/L (38-126); Anion Gap 8 mmol/L (8-16); Aspartate Amino Transferase 27 U/L (14-36); Bilirubin,Total 0.5 mg/dL (0.2-1.3); Blood Urea Nitrogen 12 mg/dL (7-17); Calcium 8.9 mg/dL (8.4-10.2); Carbon Dioxide 20 mmol/L (22-30); Chloride 112 mmol/L (98-107); Estimated CRCL calculation 66 ml/min; Estimated Glomerular Filt Rate > 60; Glucose 105 mg/dL (65-110); Lipase 111 U/L (23-300); Potassium 3.9 mmol/L (3.4-5.0); Sodium 140 mmol/L (137-145)
[2022-09-25 17:06] LABS: Prothrombin Time 30.2 Seconds (11.1-14.7)
[2022-09-25 17:07] LABS: Partial Thromboplastin Time 37.4 SECONDS (22.3-36.8)
[2022-09-25 17:14] LABS: Troponin I 0.018 ng/mL (0.000-0.034)
[2022-09-25 17:28] LABS: Influenza A QL RT-PCR Negative (Negative); Influenza B QL RT-PCR Negative (Negative); SARS-CoV-2 RNA PCR Positive
--- NOTE | 2022-09-25 19:56 | ED.CHESTPAIN ---
HPI - Chest Pain General Chief Complaint: Chest Pain <Deya Quiros PA-C - Last Filed: 09/25/22 22:27> Stated Complaint: a-fib, chest pain for 2 days <Deya Quiros PA-C - Last Filed: 09/25/22 22:27> Time Seen by Provider: 09/25/22 19:05 <Deya Quiros PA-C - Last Filed: 09/25/22 22:27> Source: patient <Deya Quiros PA-C - Last Filed: 09/25/22 22:27> Mode of arrival: ambulatory <Deya Quiros PA-C - Last Filed: 09/25/22 22:27> Limitations: no limitations <Deya Quiros PA-C - Last Filed: 09/25/22 22:27> History of Present Illness HPI narrative: This is a 67-year-old female that presents to the emergency department for cold symptoms ongoing over the last 2 days. Also reports intermittent chest pains. Reports the pain is sharp in nature and brief. Reports associated sore throat, congestion, cough. She is COVID and influenza vaccinated. Denies fever, lower extremity edema, or shortness of breath. <Deya Quiros PA-C - Last Filed: 09/25/22 22:27> Related Data Home Medications: Home Medications Medication Instructions Recorded Confirmed amlodipine 10 mg tablet 10 mg PO DAILY 09/03/20 03/22/21 atorvastatin 40 mg tablet 40 mg PO DAILY 09/03/20 03/22/21 ergocalciferol (vitamin D2) 1,250 1,250 mcg PO WEEKLY 09/03/20 03/22/21 mcg (50,000 unit) capsule (Vitamin D2) ezetimibe 10 mg tablet 10 mg PO DAILY 09/03/20 03/22/21 ferrous sulfate 325 mg (65 mg 325 mg PO DAILY 09/03/20 03/22/21 iron) tablet,delayed release hydralazine 25 mg tablet 25 mg PO BID 09/03/20 03/22/21 potassium chloride 10 mEq 10 meq PO DAILY 09/03/20 03/22/21 tablet,extended release sotalol 80 mg tablet 80 mg PO BID 09/03/20 03/22/21 topiramate 25 mg tablet 75 mg PO HS PRN Headache 09/03/20 03/22/21 tramadol 50 mg tablet 50 mg PO Q6H PRN Pain 09/03/20 03/22/21 warfarin 4 mg tablet 6 mg PO DAILY 09/03/20 03/22/21 docusate sodium 100 mg capsule 100 mg PO BID 03/22/21 03/22/21 (DOK) losartan 25 mg tablet 25 mg PO DAILY 03/22/21 03/22/21 <Deya Quiros PA-C - Last Filed: 09/25/22 22:27> Allergies/Adverse Reactions: Allergies Allergy/AdvReac Type Severity Reaction Status Date / Time apixaban AdvReac Severe Palpitation Verified 11/24/21 18:03 s <Deya Quiros PA-C - Last Filed: 09/25/22 22:27> Review of Systems Review of Systems: CONSTITUTIONAL: Denies fever EYES: Denies redness, or discharge. ENT: Reports congestion, sore throat CARDIOVASCULAR: Reports chest pain. Denies palpitations, or edema. RESPIRATORY: Reports cough. Denies dyspnea. GASTROINTESTINAL: Denies vomiting GENITOURINARY: Denies dysuria SKIN: Denies rash MUSCULOSKELETAL: Denies myalgia. NEUROLOGIC: Denies weakness. <Deya Quiros PA-C - Last Filed: 09/25/22 22:27> All systems reviewed & are unremarkable except as noted in HPI and below <Deya Quiros PA-C - Last Filed: 09/25/22 22:27> [facility] Past Medical History Medical History: Medical History Chronic anticoagulation On warfarin for stroke prophylaxis due to AFib. Dyslipidemia History of cardioversion Hypertension Left bundle branch block Chronic finding. Paroxysmal atrial fibrillation Status post cardioversion x2. <Deya Quiros PA-C - Last Filed: 09/25/22 22:27> Surgical History Surgical History: Surgical History History of total right knee replacement History of tubal ligation <Deya Quiros PA-C - Last Filed: 09/25/22 22:27> Family History Family History: Family History Sibling Lung cancer Chronic obstructive pulmonary disease Other Diabetes mellitus Heart disease <Deya Quiros PA-C - Last Filed: 09/25/22 22:27> Social History Social History: Social History Social Hi
[2022-09-25 20:01] LABS: Troponin I 0.021 ng/mL (0.000-0.034)
[2022-09-25 21:18] LABS: NT Pro B Type Natriuretic Pept 36 pg/mL (5-100)
[2022-09-25 21:24] LABS: D Dimer 0.34 ug/mL (<0.48)
[2022-09-25] MEDS: SODIUM CHLORIDE 0.9% IV 500 ML 999 ML IV CONT (21:37)
== END 2022-09-25 22:53 | disposition home or self-care (01) ==
PROVIDERS: Emergency Medicine; Physician Assistant; Emergency Provider Emergency Medicine; PCP Internal Medicine
DX: U07.1 COVID-19 (principal); R07.9 Chest pain, unspecified; B37.0 Candidal stomatitis; I48.0 Paroxysmal atrial fibrillation; E78.5 Hyperlipidemia, unspecified; I10 Essential (primary) hypertension; Z79.01 Long term (current) use of anticoagulants; Z96.651 Presence of right artificial knee joint; I51.7 Cardiomegaly
CPT/HCPCS: 36415; 71046; 80053; 83690; 83880; 84484; 85025; 85380; 85610; 85730; 87636; 93005; 96360; 99284; J7040

== ENCOUNTER 2023-03-25 14:56 | Emergency (ER) | payer MEDICARE, MEDICAID, SELFPAY ==
--- NOTE | ~2023-03-25 | CT_ITS ---
EXAMINATION: CT brain wo con DATE: 03/25/2023 17:43 INDICATION: new onset CASTRO in 67 yo . TECHNIQUE: Computed tomography (CT) of the head was performed without intravenous contrast. The mA wa s adjusted according to patient size. Iterative reconstruction technique was employed. The dose-lengt h product was 605.33 mGy-cm. COMPARISON: 04/01/2017. FINDINGS: No acute intracranial hemorrhage or extra-axial fluid collection. No hydrocephalus, mass, or herniation. No acute ischemic infarct. Unremarkable dural venous sinus attenuation. No acute osseous abnormality. Right sphenoid retention cyst or polyp, the remaining aerated spaces are clear. IMPRESSION: No acute intracranial process. Reviewed, dictated and finalized at location K.
[2023-03-25 14:59] VITALS: BP 146/80; PULSE 74; RESP 18; TEMP 36.7; O2SAT 100
--- NOTE | 2023-03-25 17:07 | PC.NURSE ---
PT TO ED FOR EVAL OF INTERMITTENT HEADACHES SINCE WEDNESDAY. STATES SHE TOOK A TYLENOL ON WEDNESDAY AND IT RELIEVED IT. THE HEADACHE CAME BACK. SHE DIDN'T TAKE ANY MORE TYLENOL AND THOUGHT THAT HAVING A HEADACHE ISN'T NORMAL SO SHE DECIDED TO COME IN TO ED FOR EVALUATION. DENIES ANY NAUSEA, VOMITING,NASAL CONGESTION,VISUAL CHANGES. APPEARS IN NAD
--- NOTE | 2023-03-25 17:31 | ED.HA ---
HPI - Headache General Chief Complaint: Headache Stated Complaint: CASTRO on and off since Wednesday Time Seen by Provider: 03/25/23 17:07 History of Present Illness HPI Narrative: Patient is a 67-year-old female with a history of atrial fibrillation on warfarin, hypertension, here for evaluation of headache. Patient states that she has had a bitemporal headache that has been intermittent in nature for the past 5 days. She denies history of headache. She has been taking Tylenol with good relief of her headaches but is concerned about the new onset. She denies any nausea, vomiting, visual changes, chest pain, shortness of breath, palpitations. No trauma. Related Data Home Medications Medication Instructions Recorded Confirmed amlodipine 10 mg tablet 10 mg PO DAILY 09/03/20 03/22/21 atorvastatin 40 mg tablet 40 mg PO DAILY 09/03/20 03/22/21 ergocalciferol (vitamin D2) 1,250 1,250 mcg PO WEEKLY 09/03/20 03/22/21 mcg (50,000 unit) capsule (Vitamin D2) ezetimibe 10 mg tablet 10 mg PO DAILY 09/03/20 03/22/21 ferrous sulfate 325 mg (65 mg 325 mg PO DAILY 09/03/20 03/22/21 iron) tablet,delayed release hydralazine 25 mg tablet 25 mg PO BID 09/03/20 03/22/21 potassium chloride 10 mEq 10 meq PO DAILY 09/03/20 03/22/21 tablet,extended release sotalol 80 mg tablet 80 mg PO BID 09/03/20 03/22/21 topiramate 25 mg tablet 75 mg PO HS PRN Headache 09/03/20 03/22/21 tramadol 50 mg tablet 50 mg PO Q6H PRN Pain 09/03/20 03/22/21 warfarin 4 mg tablet 6 mg PO DAILY 09/03/20 03/22/21 docusate sodium 100 mg capsule 100 mg PO BID 03/22/21 03/22/21 (DOK) losartan 25 mg tablet 25 mg PO DAILY 03/22/21 03/22/21 Allergies Allergy/AdvReac Type Severity Reaction Status Date / Time apixaban AdvReac Severe Palpitation Verified 03/25/23 17:12 s Review of Systems Review of Systems: Gen: Denies fevers or chills Eyes: Denies eye pain or visual change ENT: Denies congestion Respiratory: Denies shortness of breath or cough CV: Denies chest pain or palpitations GI: Denies abdominal pain nausea, emesis or diarrhea : denies burning, urgency, frequency or hematuria Musculoskeletal: Denies back pain or muscle pain Neuro: Reports headache Skin: Denies rash Except as documented, all other systems reviewed and negative PMFSH Past Medical History Medical History Chronic anticoagulation On warfarin for stroke prophylaxis due to AFib. Dyslipidemia History of cardioversion Hypertension Left bundle branch block Chronic finding. Paroxysmal atrial fibrillation Status post cardioversion x2. Surgical History Surgical History History of total right knee replacement History of tubal ligation Family History Family History Sibling Lung cancer Chronic obstructive pulmonary disease Other Diabetes mellitus Heart disease Social History Social History Social History: The patient lives in her own home in [place]. Retired from housekeeping. Lifelong nonsmoker. No alcohol or illicit substance use. She designates her son Ishmael Gale as her surrogate decision maker. Code status: Full code. Exam Narrative: APPEARANCE: Well appearing, no pain in distress, well-nourished. Head: Normocephalic and atraumatic. EYES: PERRLA/EOMI, conjunctivae clear NOSE: No nasal drainage EARS: External ear normal in appearance THROAT: Oropharynx is clear. Mucous membranes are moist. NECK: Supple. No adenopathy, no masses. RESPIRATORY: Airway patent, respirations nonlabored. Clear to auscultation bilaterally, no rales, rhonchi, wheezing. CARDIOVASCULAR: Regular rate and rhythm without murmurs, rubs, or gallops. ABDOMINAL: Normoactive bowel sounds. Soft, nontender, nondistended. No rebound tenderness or guarding. MUSCULO
[2023-03-25 18:25] VITALS: BP 160/83; PULSE 54; RESP 16; TEMP 36.8; O2SAT 99
== END 2023-03-25 18:44 | disposition home or self-care (01) ==
PROVIDERS: Emergency Provider Physician Assistant
DX: R51.9 Headache, unspecified (principal); I48.0 Paroxysmal atrial fibrillation; I10 Essential (primary) hypertension; E78.5 Hyperlipidemia, unspecified; Z79.01 Long term (current) use of anticoagulants; Z96.651 Presence of right artificial knee joint
CPT/HCPCS: 70450; 99284

== ENCOUNTER 2023-10-28 01:19 | Emergency (ER) | payer MEDICARE, MEDICAID, SELFPAY ==
--- NOTE | ~2023-10-28 | XR_ITS ---
EXAMINATION: XR chest 2V DATE: 10/28/2023 01:52 INDICATION: Burning chest pain. TECHNIQUE: Frontal and lateral views of the chest were obtained. COMPARISON: Chest 2 views 09/25/2022, CT abdomen and pelvis 06/23/2016 FINDINGS: There is no pneumonia, pleural effusion, or pneumothorax. Cardiomegaly is noted. There is a moderate-sized hiatal hernia. IMPRESSION: 1. Cardiomegaly. 2. Moderate-sized hiatal hernia. Reviewed, dictated and finalized at location E. ACT AGENT
--- NOTE | 2023-10-28 01:24 | ECG_ITS ---
Measurements Intervals [place] Rate: 52 P: 32 MD: 128 QRS: -51 QRSD: 157 T: 93 QT: 491 QTc: 457 Interpretive Statements SINUS BRADYCARDIA LEFT AXIS DEVIATION POSSIBLE LEFT ATRIAL ENLARGEMENT LEFT BUNDLE BRANCH BLOCK ABNORMAL ECG COMPARED TO ECG 09/25/2022 16:35:01 SINUS BRADYCARDIA NOW PRESENT Electronically Signed On 10-28-2023 6:32:27 [employer] by Anibal Parra D.O.
[2023-10-28 01:41] VITALS: BP 147/73; PULSE 58; RESP 14; TEMP 36.6; O2SAT 100
[2023-10-28 02:21] LABS: Alanine Aminotransferase 30 U/L (6-35); Albumin Level 4.3 g/dL (3.5-5.1); Alkaline Phosphatase 102 U/L (38-126); Anion Gap 11 mmol/L (8-16); Aspartate Amino Transferase 32 U/L (14-36); Bilirubin,Total 0.3 mg/dL (0.2-1.3); Blood Urea Nitrogen 15 mg/dL (7-17); Calcium 9.1 mg/dL (8.4-10.2); Carbon Dioxide 17 mmol/L (22-30); Chloride 114 mmol/L (98-107); Estimated CRCL calculation 74 ml/min; Estimated Glomerular Filt Rate > 60; Glucose 109 mg/dL (65-110); Lipase 144 U/L (23-300); Potassium 3.9 mmol/L (3.4-5.0); Sodium 142 mmol/L (137-145)
[2023-10-28 02:22] LABS: Basophils Percent Auto 0.7 % (0.2-1.2); Eosinophils Absolute Auto 0.1 K/mm3 (0-0.3); Eosinophils Percent Auto 1.9 % (0-4.4); Hematocrit 45.5 % (37.0-47.0); Hemoglobin 12.7 g/dL (12.0-15.0); INR 1.5; Immature Granulocyte Absolute 0.01 K/mm3 (0.00-0.031); Immature Granulocyte Percent A 0.2 % (0-0.5); Lymphocytes Absolute Auto 1.47 K/mm3 (0.9-3.2); Lymphocytes Percent Auto 27.5 % (18.3-44.2); Mean Corpuscular HGB Conc 27.9 g/dl (32-36); Mean Corpuscular Hemoglobin 25.6 pg (26-34); Mean Corpuscular Volume 91.5 fl (80-100); Mean Platelet Volume 10.7 fl (7.4-10.4); Monocytes Absolute Auto 0.5 K/mm3 (0.1-0.6); Neutrophils Absolute Auto 3.2 K/mm3 (1.3-6.7); Neutrophils Percent Auto 60.7 % (45.5-73.1); Partial Thromboplastin Time 24.6 SECONDS (22.3-36.8); Platelet Count Result 305 k/mm3 (150-375); Prothrombin Time 19.3 Seconds (11.1-14.7); Red Blood Count 4.97 M/mm3 (4.2-5.4); White Blood Count 5.3 K/mm3 (4.5-10.0)
[2023-10-28 02:32] LABS: Troponin I 0.014 ng/mL (0.000-0.034)
[2023-10-28 02:36] LABS: Anisocytosis 1+ (NORMAL); Hypochromasia 1+ (NORMAL); Large Platelets Present; Macrocytosis 1+ (NORMAL); Platelet Estimate Adequate (Adequate); Schistocytes Rare (NORMAL)
[2023-10-28] MEDS: ASPIRIN 81 MG CHEWABLE TABLET 324 MG PO (03:21)
[2023-10-28 03:22] VITALS: O2SAT 100
[2023-10-28 03:23] VITALS: BP 142/68; PULSE 57; RESP 19; O2SAT 100
--- NOTE | 2023-10-28 05:10 | ED.CHESTPAIN ---
HPI - Chest Pain General Chief Complaint: Chest Pain Stated Complaint: burning sensation in chest Time Seen by Provider: 10/28/23 02:50 Source: patient Limitations: no limitations History of Present Illness HPI narrative: Patient is a 68-year-old female presents to the emergency department complaining of chest discomfort. Patient states around 11:30 p.m. she was lying in bed when she had a couple seconds of a burning sensation in the middle of her chest resolved. Patient denies any history gets in the past. Patient denies shortness of breath, cough, fever, recent injuries, recent illness, abdominal pain, vomiting, nausea, diarrhea, melena, hematochezia, urinary discomfort, numbness, weakness. Patient did not notice anything that brought on the burning sensation has not returned patient denies radiation of the burning sensation. Patient denies history of Gastroenterology EGD scopes or history of GERD. Patient denies any new or change medications. Patient denies history of blood clots. Patient states for multiple hours she has not had any return of the sensation overall feels well at this time. Related Data Home Medications Medication Instructions Recorded Confirmed amlodipine 10 mg tablet 10 mg PO DAILY 09/03/20 03/22/21 atorvastatin 40 mg tablet 40 mg PO DAILY 09/03/20 03/22/21 ergocalciferol (vitamin D2) 1,250 1,250 mcg PO WEEKLY 09/03/20 03/22/21 mcg (50,000 unit) capsule (Vitamin D2) ezetimibe 10 mg tablet 10 mg PO DAILY 09/03/20 03/22/21 ferrous sulfate 325 mg (65 mg 325 mg PO DAILY 09/03/20 03/22/21 iron) tablet,delayed release hydralazine 25 mg tablet 25 mg PO BID 09/03/20 03/22/21 potassium chloride 10 mEq 10 meq PO DAILY 09/03/20 03/22/21 tablet,extended release sotalol 80 mg tablet 80 mg PO BID 09/03/20 03/22/21 topiramate 25 mg tablet 75 mg PO HS PRN Headache 09/03/20 03/22/21 tramadol 50 mg tablet 50 mg PO Q6H PRN Pain 09/03/20 03/22/21 warfarin 4 mg tablet 6 mg PO DAILY 09/03/20 03/22/21 docusate sodium 100 mg capsule 100 mg PO BID 03/22/21 03/22/21 (DOK) losartan 25 mg tablet 25 mg PO DAILY 03/22/21 03/22/21 Allergies Allergy/AdvReac Type Severity Reaction Status Date / Time apixaban AdvReac Severe Palpitation Verified 10/28/23 03:24 s Review of Systems Review of Systems: A 10 system review of systems was completed on the patient and is negative except for what is stated in the HPI. Nursing and ancillary documentation was reviewed. [facility] Past Medical History Medical History Chronic anticoagulation On warfarin for stroke prophylaxis due to AFib. Dyslipidemia History of cardioversion Hypertension Left bundle branch block Chronic finding. Paroxysmal atrial fibrillation Status post cardioversion x2. Surgical History Surgical History History of total right knee replacement History of tubal ligation Family History Family History Sibling Lung cancer Chronic obstructive pulmonary disease Other Diabetes mellitus Heart disease Social History Social History Social History: The patient lives in her own home in [place]. Retired from housekeeping. Lifelong nonsmoker. No alcohol or illicit substance use. She designates her son Ishmael Gale as her surrogate decision maker. Code status: Full code. Comments At time of signature, I have reviewed and agree with nursing past medical, surgical, social and family history unless otherwise noted. Please see the nursing chart for further information. There is no relevant family history pertinent to the presenting complaint. Exam Narrative: CONST: No acute distress. Well nourished. HENMT: Head is normocephalic and atraumatic. Moist mucous membranes. No posterior oropharynx erythema.
[2023-10-28] MEDS: MAG HYDROX/AL HYDROX/SIMETH 30 ML UDC PO (05:21)
[2023-10-28] MEDS: FAMOTIDINE 20 MG TABLET PO (05:28)
[2023-10-28 05:29] VITALS: BP 145/66; PULSE 60; RESP 15; O2SAT 100
== END 2023-10-28 05:34 | disposition home or self-care (01) ==
PROVIDERS: Emergency Provider Student in an Organized Health Care Education/Training Program; PCP Physician Assistant
DX: R07.89 Other chest pain (principal); K21.9 Gastro-esophageal reflux disease without esophagitis; I48.0 Paroxysmal atrial fibrillation; I10 Essential (primary) hypertension; E78.5 Hyperlipidemia, unspecified; Z96.651 Presence of right artificial knee joint; Z79.01 Long term (current) use of anticoagulants; I44.7 Left bundle-branch block, unspecified; R94.31 Abnormal electrocardiogram [ECG] [EKG]; R00.1 Bradycardia, unspecified; K44.9 Diaphragmatic hernia without obstruction or gangrene; I51.7 Cardiomegaly
CPT/HCPCS: 36415; 71046; 80053; 83690; 84484; 85025; 85610; 85730; 93005; 99284; A9270

== ENCOUNTER 2024-04-17 13:26 | Emergency (ER) | payer MEDICARE, SELFPAY ==
--- NOTE | ~2024-04-17 | CT_ITS ---
EXAMINATION: CT brain wo con DATE: 04/17/2024 16:59 INDICATION: Dizziness. Headache. TECHNIQUE: Computed tomography (CT) of the head was performed without intravenous contrast. The mA wa s adjusted according to patient size. Iterative reconstruction technique was employed. The dose-lengt h product was 605.33 mGy-cm. COMPARISON: Head CT 03/25/2023 FINDINGS: There is no intracranial hemorrhage, acute infarction, or abnormal intracranial mass lesion . The ventricles are normal in size. The orbits are normal. There is a mucous retention cyst in right maxillary sinus. The mastoid air cells are normal. IMPRESSION: 1. Normal brain. Reviewed, dictated and finalized at location E. IMPRESSION: 1. Normal brain.
[2024-04-17 13:51] VITALS: BP 146/78; PULSE 72; RESP 19; TEMP 36.7; O2SAT 100
--- NOTE | 2024-04-17 16:39 | ED.GENADULT ---
HPI - General Adult General Chief complaint: Headache Stated complaint: headache, eye pain x 3 days Time Seen by Provider: 04/17/24 16:39 Focused HPI: Patient is a 68 y/o female who presents to the ED with c/o headache and eye pain. Patient reports having a frontal and periorbital CASTRO for the past 3 days. States pain is intermittent. Denies pain currently. Has been taking Tylenol for the pain with minimal relief. Reports remote hx of migraines, but states they have never presented like this. Described the pain as a smooth draining sensation. Reports dryness to her eyes and lightheadedness, denies vision changes, eye redness, syncope, focal numbness or weakness. Patient is on Warfarin d/t hx of AFIB. GENERAL: Well-appearing, obese with BMI of 38.2, and in no acute distress. HEAD: Normocephalic, atraumatic. EYES: PERRL/EOMI, conjunctiva clear. Scant serous drainage. CHEST: Clear to auscultation. ?No respiratory distress. HEART: Regular rate and rhythm.? NEURO: ?Alert and oriented x3. No focal deficits. Patient screened in triage and initial orders placed.? ?Additional care and disposition to be based upon?diagnostic testing and treatment. Source: patient Mode of arrival: ambulatory Limitations: no limitations Related Data Home Medications Medication Instructions Recorded Confirmed amlodipine 10 mg tablet 10 mg PO DAILY 09/03/20 03/22/21 atorvastatin 40 mg tablet 40 mg PO DAILY 09/03/20 03/22/21 ergocalciferol (vitamin D2) 1,250 1,250 mcg PO WEEKLY 09/03/20 03/22/21 mcg (50,000 unit) capsule (Vitamin D2) ezetimibe 10 mg tablet 10 mg PO DAILY 09/03/20 03/22/21 ferrous sulfate 325 mg (65 mg 325 mg PO DAILY 09/03/20 03/22/21 iron) tablet,delayed release hydralazine 25 mg tablet 25 mg PO BID 09/03/20 03/22/21 potassium chloride 10 mEq 10 meq PO DAILY 09/03/20 03/22/21 tablet,extended release sotalol 80 mg tablet 80 mg PO BID 09/03/20 03/22/21 topiramate 25 mg tablet 75 mg PO HS PRN Headache 09/03/20 03/22/21 tramadol 50 mg tablet 50 mg PO Q6H PRN Pain 09/03/20 03/22/21 warfarin 4 mg tablet 6 mg PO DAILY 09/03/20 03/22/21 docusate sodium 100 mg capsule 100 mg PO BID 03/22/21 03/22/21 (DOK) losartan 25 mg tablet 25 mg PO DAILY 03/22/21 03/22/21 Allergies Allergy/AdvReac Type Severity Reaction Status Date / Time apixaban AdvReac Severe Palpitation Verified 04/17/24 16:46 s diphenhydramine AdvReac Mild Agitated Verified 04/17/24 16:46 [From Kristen] [facility] Past Medical History Medical History Chronic anticoagulation On warfarin for stroke prophylaxis due to AFib. Dyslipidemia History of cardioversion Hypertension Left bundle branch block Chronic finding. Paroxysmal atrial fibrillation Status post cardioversion x2. Surgical History Surgical History History of total right knee replacement History of tubal ligation Family History Family History Sibling Lung cancer Chronic obstructive pulmonary disease Other Diabetes mellitus Heart disease Social History Social History Social History: The patient lives in her own home in [place]. Retired from housekeeping. Lifelong nonsmoker. No alcohol or illicit substance use. She designates her son Ishmael Gale as her surrogate decision maker. Code status: Full code. Course Vital Signs Vital signs: Vital Signs Temperature 98.1 F 04/17/24 13:51 Pulse Rate 72 04/17/24 13:51 Respiratory Rate 04/17/24 13:51 Blood Pressure 146/78 H 04/17/24 13:51 Pulse Oximetry 100 04/17/24 13:51 Temperature 98.1 F 04/17/24 13:51 Pulse Rate 72 04/17/24 13:51 Respiratory Rate 19 04/17/24 13:51 Blood Pressure 146/78 H 04/17/24 13:51 Pulse Oximetry 100 04/17/24 13:51 Medical Dec[facility]
[2024-04-17 16:54] LABS: Basophils Percent Auto 0.5 % (0.2-1.2); Eosinophils Absolute Auto 0.1 K/mm3 (0-0.3); Hematocrit 48.4 % (37.0-47.0); Immature Granulocyte Absolute 0.01 K/mm3 (0.00-0.031); Immature Granulocyte Percent A 0.1 % (0-0.5); Lymphocytes Absolute Auto 2.01 K/mm3 (0.9-3.2); Lymphocytes Percent Auto 27.6 % (18.3-44.2); Mean Corpuscular HGB Conc 33.1 g/dl (32-36); Mean Corpuscular Hemoglobin 31.4 pg (26-34); Mean Corpuscular Volume 94.9 fl (80-100); Monocytes Absolute Auto 0.4 K/mm3 (0.1-0.6); Monocytes Percent Auto 5.8 % (2.6-8.5); Neutrophils Absolute Auto 4.7 K/mm3 (1.3-6.7); Platelet Count Result 280 k/mm3 (150-375); Red Cell Distribution Width 14.8 % (11.5-14.5); White Blood Count 7.3 K/mm3 (4.5-10.0)
[2024-04-17 17:02] LABS: INR 2.3; Partial Thromboplastin Time 31.2 Seconds (22.3-36.8); Prothrombin Time 25.5 Seconds (11.1-14.7)
[2024-04-17 17:10] LABS: Alanine Aminotransferase 44 U/L (6-35); Albumin Level 4.7 g/dL (3.5-5.1); Alkaline Phosphatase 121 U/L (38-126); Anion Gap 12 mmol/L (4-12); Aspartate Amino Transferase 32 U/L (14-36); Bilirubin,Total 0.6 mg/dL (0.2-1.3); Blood Urea Nitrogen 11 mg/dL (7-17); Calcium 9.1 mg/dL (8.4-10.2); Carbon Dioxide 19 mmol/L (22-30); Chloride 111 mmol/L (98-107); Estimated CRCL calculation 69 ml/min; Estimated Glomerular Filt Rate > 60; Glucose 107 mg/dL (65-110); Potassium 3.8 mmol/L (3.4-5.0); Sodium 142 mmol/L (137-145)
--- NOTE | 2024-04-17 19:00 | PC.NURSE ---
patient left after seeing provider
--- NOTE | 2024-04-17 19:57 | ED.GENADULT ---
HPI - General Adult General Chief complaint: Headache Stated complaint: headache, eye pain x 3 days Time Seen by Provider: 04/17/24 16:39 Source: patient Mode of arrival: ambulatory Limitations: no limitations History of Present Illness HPI narrative: Patient is a 68-year-old female who presents to the emergency department this afternoon complaining of a headache and pressure behind both of her eyes. Patient states that she does have a history of migraines and does take topiramate which was prescribed for her migraine headaches. Patient states that this does feel similar to her regular headaches but states that this headache persisted longer than and her headaches normally loss. Usually she can manage her symptoms at home with Tylenol and the 2. Meet but today she noticed that she still had the headache. Patient wanted to come to the emergency department for further evaluation. She states that her headache is mild at this time. Denies any focal weakness, any vision changes, any numbness and tingling, any dizziness or lightheadedness. No additional symptoms or concerns at this time. Related Data Home Medications Medication Instructions Recorded Confirmed amlodipine 10 mg tablet 10 mg PO DAILY 09/03/20 03/22/21 atorvastatin 40 mg tablet 40 mg PO DAILY 09/03/20 03/22/21 ergocalciferol (vitamin D2) 1,250 1,250 mcg PO WEEKLY 09/03/20 03/22/21 mcg (50,000 unit) capsule (Vitamin D2) ezetimibe 10 mg tablet 10 mg PO DAILY 09/03/20 03/22/21 ferrous sulfate 325 mg (65 mg 325 mg PO DAILY 09/03/20 03/22/21 iron) tablet,delayed release hydralazine 25 mg tablet 25 mg PO BID 09/03/20 03/22/21 potassium chloride 10 mEq 10 meq PO DAILY 09/03/20 03/22/21 tablet,extended release sotalol 80 mg tablet 80 mg PO BID 09/03/20 03/22/21 topiramate 25 mg tablet 75 mg PO HS PRN Headache 09/03/20 03/22/21 tramadol 50 mg tablet 50 mg PO Q6H PRN Pain 09/03/20 03/22/21 warfarin 4 mg tablet 6 mg PO DAILY 09/03/20 03/22/21 docusate sodium 100 mg capsule 100 mg PO BID 03/22/21 03/22/21 (DOK) losartan 25 mg tablet 25 mg PO DAILY 03/22/21 03/22/21 Allergies Allergy/AdvReac Type Severity Reaction Status Date / Time apixaban AdvReac Severe Palpitation Verified 04/17/24 16:46 s diphenhydramine AdvReac Mild Agitated Verified 04/17/24 16:46 [From Benadryl] Review of Systems Review of Systems: All systems are reviewed and are negative unless stated otherwise in the HPI. [facility] Past Medical History Medical History Chronic anticoagulation On warfarin for stroke prophylaxis due to AFib. Dyslipidemia History of cardioversion Hypertension Left bundle branch block Chronic finding. Paroxysmal atrial fibrillation Status post cardioversion x2. Surgical History Surgical History History of total right knee replacement History of tubal ligation Family History Family History Sibling Lung cancer Chronic obstructive pulmonary disease Other Diabetes mellitus Heart disease Social History Social History Social History: The patient lives in her own home in [place]. Retired from housekeeping. Lifelong nonsmoker. No alcohol or illicit substance use. She designates her son Ishmael Gale as her surrogate decision maker. Code status: Full code. Exam Narrative: General: Alert, awake, afebrile, in no acute distress. HEENT: PERRL, no rhinorrhea, no post nasal drip, oropharynx clear, no temporal tenderness. Cardiovascular: Regular rate and rhythm, no murmurs, rubs or gallops, no peripheral edema. Respiratory: Clear to auscultation bilaterally, no tachypnea, no wheezing, no rhonchi, no rubs, no respiratory distress. Abdomen: Soft, nontender, nondistended, no rebound, no guarding, no peritoneal signs.
[2024-04-17] MEDS: SODIUM CHLORIDE 0.9% IV 1,000 ML 999 ML IV CONT (20:08)
[2024-04-17] MEDS: PROCHLORPERAZINE EDISYLATE 10 MG/2 ML VIAL IV PUSH (20:09)
[2024-04-17 20:20] VITALS: BP 160/87; PULSE 73; RESP 15; O2SAT 99
--- NOTE | 2024-04-17 20:20 | PC.NURSE ---
Pt expressed to this RN that she would like to hold off on any pain medication at this time.
[2024-04-17 21:41] VITALS: BP 166/84; PULSE 80; RESP 15; O2SAT 99
== END 2024-04-17 21:42 | disposition home or self-care (01) ==
PROVIDERS: Physician Assistant; Emergency Provider Emergency Medicine
DX: R51.9 Headache, unspecified (principal); I48.91 Unspecified atrial fibrillation; Z79.01 Long term (current) use of anticoagulants; E78.5 Hyperlipidemia, unspecified; I10 Essential (primary) hypertension
CPT/HCPCS: 36415; 70450; 80053; 85025; 85610; 85730; 96361; 96374; 99284; J0780; J1885; J7030

== ENCOUNTER 2024-07-09 13:48 | Emergency (ER) | payer MEDICARE, SELFPAY ==
--- NOTE | ~2024-07-09 | XR_ITS ---
XR chest 2V Ordering provider: Bonnie Fishman PA-C History: 68 years Female with . sob, weakness, chest tightness hx AFIB . Comparison: None. FINDINGS: MEDIASTINUM: The cardiac silhouette is slightly enlarged. Congestive vipul. Soft tissue opacity seen i n the lower mediastinum which may indicate sliding hiatus hernia. LUNGS: No infiltrates, effusions or pneumothorax. OTHER: No free air under the diaphragm. Degenerative spine. IMPRESSION: No acute cardiopulmonary pathology. Reviewed, dictated and finalized at location A.
[2024-07-09 13:51] VITALS: BP 153/81; PULSE 78; RESP 18; TEMP 36.8; O2SAT 100
--- NOTE | 2024-07-09 13:51 | ECG_ITS ---
Test Date: 2024-07-09 13:54:28 Measurements Intervals [place] Rate: 70 P: 29 SD: 140 QRS: -40 QRSD: 152 T: 125 QT: 394 QTc: 428 Interpretive Statements SINUS RHYTHM LEFT AXIS DEVIATION LEFT BUNDLE BRANCH BLOCK BASELINE ARTIFACT- I, II, III, AVR, AVL, AVF, V5 ABNORMAL ECG No previous ECG available for comparison Electronically Signed On 07-09-2024 15:42:12 CDT by Anibal Parra D.O.
--- NOTE | 2024-07-09 15:24 | ED.GENADULT ---
HPI - General Adult General Chief complaint: Weakness Stated complaint: shortness of breath Time Seen by Provider: 07/09/24 15:21 Source: patient Mode of arrival: ambulatory Limitations: no limitations History of Present Illness HPI narrative: Patient is a 68 y/o female, with PMH of pAFIB on Warfarin, who presents to the ED with c/o episode of shortness of breath. Patient reports she was lying down watching TV just prior to arrival when she suddenly became short of breath. She states this lasted for approximately 6-7 minutes before resolving on its own. She continued to lay down throughout this entire time. She states she felt a diffuse body discomfort, but denied chest pain. She became worried with her history of AFib and prompted here for further evaluation. Patient denies any shortness of breath currently. Denies dyspnea with exertion including walking in from the parking lot. Denies active chest pain. Denies recent cold symptoms, but admits to a mild cough. Denies fevers. Denies lower extremity pain or swelling. Related Data Home Medications Medication Instructions Recorded Confirmed amlodipine 10 mg tablet 10 mg PO DAILY 09/03/20 03/22/21 atorvastatin 40 mg tablet 40 mg PO DAILY 09/03/20 03/22/21 ergocalciferol (vitamin D2) 1,250 1,250 mcg PO WEEKLY 09/03/20 03/22/21 mcg (50,000 unit) capsule (Vitamin D2) ezetimibe 10 mg tablet 10 mg PO DAILY 09/03/20 03/22/21 ferrous sulfate 325 mg (65 mg 325 mg PO DAILY 09/03/20 03/22/21 iron) tablet,delayed release hydralazine 25 mg tablet 25 mg PO BID 09/03/20 03/22/21 potassium chloride 10 mEq 10 meq PO DAILY 09/03/20 03/22/21 tablet,extended release sotalol 80 mg tablet 80 mg PO BID 09/03/20 03/22/21 topiramate 25 mg tablet 75 mg PO HS PRN Headache 09/03/20 03/22/21 tramadol 50 mg tablet 50 mg PO Q6H PRN Pain 09/03/20 03/22/21 warfarin 4 mg tablet 6 mg PO DAILY 09/03/20 03/22/21 docusate sodium 100 mg capsule 100 mg PO BID 03/22/21 03/22/21 (DOK) losartan 25 mg tablet 25 mg PO DAILY 03/22/21 03/22/21 Allergies Allergy/AdvReac Type Severity Reaction Status Date / Time apixaban AdvReac Severe Palpitation Verified 07/09/24 17:08 s diphenhydramine AdvReac Mild Agitated Verified 07/09/24 17:08 [From Benadryl] Review of Systems Review of Systems: All systems reviewed & are unremarkable except as noted in HPI. All systems reviewed & are unremarkable except as noted in HPI and below [facility] Past Medical History Medical History Chronic anticoagulation On warfarin for stroke prophylaxis due to AFib. Dyslipidemia History of cardioversion Hypertension Left bundle branch block Chronic finding. Paroxysmal atrial fibrillation Status post cardioversion x2. Surgical History Surgical History History of total right knee replacement History of tubal ligation Family History Family History Sibling Lung cancer Chronic obstructive pulmonary disease Other Diabetes mellitus Heart disease Social History Social History Social History: The patient lives in her own home in [place]. Retired from housekeeping. Lifelong nonsmoker. No alcohol or illicit substance use. She designates her son Ishmael Gale as her surrogate decision maker. Code status: Full code. Exam Narrative: GENERAL: Well appearing, morbidly obese with BMI of 41.6, non-toxic, in no acute distress. HEAD: Normocephalic, atraumatic. RESPIRATORY: Airway patent, respirations nonlabored. Clear to auscultation bilaterally, no rales, rhonchi, wheezing. No focal lung sounds. CARDIOVASCULAR: Regular rate and rhythm without murmurs, rubs, or gallops. MUSCULOSKELETAL: Moves all extremities. No gross deformities. No peripheral edema. No ca
[2024-07-09 15:40] VITALS: BP 148/79; PULSE 65; RESP 20; O2SAT 98
[2024-07-09 15:42] VITALS: PULSE 65
[2024-07-09 15:43] VITALS: O2SAT 100
[2024-07-09 15:49] LABS: Basophils Percent Auto 0.4 % (0.2-1.2); Eosinophils Absolute Auto 0.1 K/mm3 (0-0.3); Eosinophils Percent Auto 1.5 % (0-4.4); Hematocrit 45.8 % (37.0-47.0); Immature Granulocyte Absolute 0.01 K/mm3 (0.00-0.031); Immature Granulocyte Percent A 0.1 % (0-0.5); Lymphocytes Absolute Auto 1.71 K/mm3 (0.9-3.2); Mean Corpuscular HGB Conc 32.8 g/dl (32-36); Mean Corpuscular Hemoglobin 31.3 pg (26-34); Mean Corpuscular Volume 95.6 fl (80-100); Mean Platelet Volume 9.4 fl (7.4-10.4); Monocytes Absolute Auto 0.6 K/mm3 (0.1-0.6); Monocytes Percent Auto 8.5 % (2.6-8.5); Neutrophils Absolute Auto 4.4 K/mm3 (1.3-6.7); Neutrophils Percent Auto 64.5 % (45.5-73.1); Platelet Count Result 274 k/mm3 (150-375); Red Blood Count 4.79 M/mm3 (4.2-5.4); Red Cell Distribution Width 15.1 % (11.5-14.5); White Blood Count 6.8 K/mm3 (4.5-10.0)
[2024-07-09 15:59] LABS: Partial Thromboplastin Time 28.8 Seconds (22.3-36.8); Prothrombin Time 23.4 Seconds (11.1-14.7)
[2024-07-09 16:03] LABS: Alanine Aminotransferase 27 U/L (6-35); Albumin Level 4.3 g/dL (3.5-5.1); Alkaline Phosphatase 95 U/L (38-126); Anion Gap 10 mmol/L (4-12); Aspartate Amino Transferase 28 U/L (14-36); Bilirubin,Total 0.3 mg/dL (0.2-1.3); Blood Urea Nitrogen 10 mg/dL (7-17); Carbon Dioxide 18 mmol/L (22-30); Chloride 113 mmol/L (98-107); Estimated CRCL calculation 66 ml/min; Estimated Glomerular Filt Rate > 60; Glucose 103 mg/dL (65-110); Potassium 3.7 mmol/L (3.4-5.0); Sodium 141 mmol/L (137-145)
[2024-07-09 16:14] LABS: NT Pro B Type Natriuretic Pept 22 pg/mL (19.9-100); Troponin I 0.019 ng/mL (0.000-0.034)
[2024-07-09 16:25] LABS: Influenza A QL RT-PCR Negative (Negative); Influenza B QL RT-PCR Negative (Negative); RSV RNA, RT-PCR Negative (Negative); SARS-CoV-2 RNA PCR Negative (Negative)
[2024-07-09 17:08] VITALS: BP 145/87; PULSE 62; RESP 19; O2SAT 99
[2024-07-09 17:12] LABS: Add Urine Microscopic? YES; Appearance Urine Cloudy (Clear); Bacteria Urine None Seen /hpf; Bilirubin Urine Negative (Negative); Blood Urine Negative (Negative); Calcium Oxalate Crystals Urine Present /hpf; Color Urine Yellow (Yellow); Glucose Urine UA Negative (Negative); Ketones Urine Negative (Negative); Leukocyte Esterase Ur Trace LEU/UL (Negative); Nitrate Urine Negative (Negative); Non Pathogenic Casts 0-2; Protein Urine Negative (Negative); Squamous Epithelial Cell Urine Occasional /hpf (Few); Urobilinogen Urine 0.2 mg/dL (<2.0); WBC Urine 0-5 /hpf (0-3); pH Urine 5.5 (5.0-9.0)
--- NOTE | 2024-07-09 19:13 | PC.NURSE ---
Assumed care of patient and received report from Debby MULLINS. Patient resting comfortably on ED cart at this time. Patient awaiting disposition at this time.
[2024-07-09 20:03] VITALS: BP 138/70; PULSE 70; RESP 18; O2SAT 99
== END 2024-07-09 20:04 | disposition home or self-care (01) ==
PROVIDERS: Emergency Provider Physician Assistant; PCP Internal Medicine
DX: R06.02 Shortness of breath (principal); Z20.822 Contact with and (suspected) exposure to COVID-19; I48.0 Paroxysmal atrial fibrillation; I10 Essential (primary) hypertension; E78.5 Hyperlipidemia, unspecified; Z96.651 Presence of right artificial knee joint; Z79.01 Long term (current) use of anticoagulants; Z79.899 Other long term (current) drug therapy; I44.7 Left bundle-branch block, unspecified
CPT/HCPCS: 36415; 71046; 80053; 81001; 83880; 84484; 85025; 85610; 85730; 87637; 93005; 99284